=== PATIENT | female | born 1955 | race Two or more races ===

== ENCOUNTER 2023-12-11 15:02 | Emergency (ER) | payer MEDICARE ==
[~2023-12-11] VITALS: Ht 172.7 cm; Wt 61.9 kg
[2023-12-11] MEDS: KETOROLAC TROMETH 60MG/2ML VIAL IM ONE (16:10)
[2023-12-11 17:17] LABS: Urine Bacteria MOD /hpf (None Seen); Urine Blood Negative /uL (Negative); Urine Clarity Turbid (Clear); Urine Color Dark-Yellow (Yellow); Urine Mucus FEW (None Seen); Urine Protein, UAD 3+ (Negative); Urine Specific Gravity 1.027 (1.001-1.035); Urine Urobilinogen 8 mg/dL (Negative); Urine WBC 13 /hpf (0 - 5)
[2023-12-11] MEDS ORDERED: IBUP-1454 PO (17:54)
[2023-12-11] MEDS ORDERED: LEVO500T91 PO (17:54)
[2023-12-11] MEDS: levoFLOXacin 250 MG TAB PO ONE (18:05)
[2023-12-11 18:10] VITALS: BP 115/65; PULSE 92; RESP 17; TEMP 98.3; O2SAT 95
== END 2023-12-11 18:10 | disposition home or self-care (01) ==
LOC: ER 15:02
DX: N12 Tubulo-interstitial nephritis, not specified as acute or chronic (principal)
CPT/HCPCS: 81001; 96372; 99283; J1885

== ENCOUNTER 2024-05-23 12:43 | Inpatient (IN) | payer MEDICARE, OTHER ==
[~2024-05-23] VITALS: Ht 172.7 cm; Wt 54.4 kg
[~2024-05-23 12:43] MED LIST: IBUP-1454 PO; LEVO500T91 PO
--- NOTE | 2024-05-23 13:22 | ED.PDOC ---
History of Present Illness HPI Comments 68 y.o female presents to the ED for multiple complaints that been ongoing for months. Patient reports SOB, diffused abdominal pain, multiple syncopes, dizzy spells, bilateral flank pain, and 4 month hx of weight loss. Patient reports she was recently seen at [facility] 2 days ago. Patient reported one episode of rectal bleeding when wiping but since has not had more episodes. Patient reports ignoring her symptoms for months as she needs to go to work to provide for her family. Patient admits to tobacco and alcohol use but denies substance use. Chief Complaint: Shortness of Breath Time Seen by MD: 13:08 Reviewed Notes: Nurses Notes, Medications, Allergies Allergies: Uncoded Allergies: SULFA (Allergy, Unknown, 12/11/23) Home Meds Active Scripts Ibuprofen (Ibuprofen) 600 Mg Tab, 1 TAB PO Q6HP PRN, #30 TAB Prov:TRENT MALLORY PAC 12/11/23 Levofloxacin Hemihydrate (LEVAQUIN 500 MG) 500 Mg Tab, 1 TAB PO DAILY, #7 TAB Prov:TRENT MALLORY PAC 12/11/23 Information Source: Patient Mode of Arrival: Ambulatory Severity: Moderate Timing: Months Duration: Since onset Past Medical History PAST MEDICAL HISTORY: UTI'S Surgical History: Tonsillectomy Surgical History (Other): back LABEL MAKER History: No 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 LABEL MAKER History Family History Family History: Reviewed,noncontributory to illness, No family hx of Cancer, No family hx of DM, No family hx of Heart beverly, No family hx of HTN, No family hx ofKidney beverly, No family hx of Liver beverly, No family hx of Lung beverly, No family hx of Stroke Social History Smoker: Non-Smoker Alcohol: Denies ETOH Use Drugs: Denies Drug Use Lives In: Home Constitutional: denies: chills, diaphoresis, fatigue, fever, malaise, sweats, weakness, others EENTM: denies: blurred vision, double vision, ear bleeding, ear discharge, ear drainage, ear pain, ear ringing, eye pain, eye redness, hearing loss, mouth pain, mouth swelling, nasal discharge, nose bleeding, nose congestion, nose pain, photophobia, tearing, throat pain, throat swelling, voice changes, others Respiratory: reports: SOB at rest, shortness of breath, SOB with excertion; denies: cough, hemoptysis, orthopnea, stridor, wheezing, others Cardiovascular: reports: dizzy spells, syncope; denies: chest pain, diaphoresis, Dyspnea on exertion, edema, irregular heart beat, left arm pain, lightheadedness, palpitations, PND, others Gastrointestinal: reports: abdominal pain; denies: abdomen distended, blood streaked bowels, constipated, diarrhea, dysphagia, difficulty swallowing, hematemesis, melena, nausea, poor appetite, poor fluid intake, rectal bleeding, rectal pain, vomiting, others Genitourinary: reports: flank pain; denies: abnormal vagina bleeding, burning, dyspareunia, dysuria, frequency, hematuria, incontinence, pain, , vagina discharge, urgency, others Neurological: reports: dizziness, fainting; denies: headache, left sided numbness, left sided weakness, numbness, paresthesia, pre-existing deficit, right sided numbness, right sided weakness, seizure, speech problems, tingling, tremors, weakness, others Musculoskeletal: denies: back pain, gout, joint pain, joint swelling, muscle pain, muscle stiffness, neck pain, others Integumetry: denies: bruises, change in color, change in hair/nails, dryness, laceration, lesions, lumps, rash, wounds, others Allergic/Immunocompromised: denies: Difficulty Healing, Frequent Infections, Hives, Itching, others Hematologic/Lymphatic: denies: anemia, blood clots, easy bleeding, easy bruising, swollen glands, others Endocrine: reports: unexplained weight loss; denies: excessive hunger, excessive sweating, excessive thirst, excessive urination, flushing, intolerance to cold, intolerance to heat, unexplained weight gain, others Psychiatric: denies: anxiety, bipolar disorder, depression, hopeless, panic disorder, schizophrenia, sleepless, suicidal, others All Other Systems: Reviewed and Negative Physical Exam General Appearance: Cachectic, Moderate Distress HEENT: Normal ENT Inspection, Pharynx Normal, TMs Normal Neck: Full Range of Motion, Non-Tender, Normal, Normal Inspection Respiratory: Chest Non-Tender, Lungs Clear, No Accessory Muscle Use, No Respiratory Distress, Normal Breath Sounds Cardiovascular: No Edema, No JVD, No Murmur, No Gallop, Normal Peripheral Pulses, Regular Rate/Rhythm Breast Exam: Deferred Gastrointestinal: No Organomegaly, Non Tender, No Pulsatile Mass, Normal Bowel Sounds, Soft Genitalia: Deferred Pelvic: Deferred Rectal: Deferred Extremities: No calf tenderness, Normal capillary refill, No pedal edema Musculoskeletal : Apperance: Normal Neurologic: Alert, 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 Was a procedure done?: No EKG EKG : Pulse Rate (adult): 113 [place]: RAD Cardiac Rhythm: ST Differential Dx Considerations may include: Denies weakness, malignancy, PE, failure to thrive, electrolyte imbalance X-Ray, Labs, Meds, VS Vital Signs Date Time Temp Pulse Resp B/P (MAP) Pulse Ox O2 Delivery O2 Flow Rate FiO2 05/23/24 17:03 98.0 80 18 121/71 (88) 98 98.0 05/23/24 13:50 98.9 116 16 113/79 (90) 90 98.9 05/23/24 13:50 116 16 90 Room Air* 0 21 05/23/24 13:27 113 05/23/24 13:27 113 05/23/24 13:23 17 93 Room Air* 0 21 05/23/24 13:20 98.4 116 17 131/88 (102) 93 Lab Test 05/23/24 13:41 05/23/24 13:32 Range/Units White Blood Count 7.9 4.4-10.8 10^3/uL Red Blood Count 4.12 4.0-5.20 10^6/uL Hemoglobin 15.4 12.2-16.2 g/dL Hematocrit 44.6 36.0-46.0 % Mean Corpuscular Volume 108.2 H 80.0-100.0 fL Mean Corpuscular Hemoglobin 37.4 H 28.0-32.0 pg Mean Corpuscular Hemoglobin Concent 34.5 32.0-36.0 g/dL Red Cell Distribution Width 14.4 H 11.8-14.3 % Platelet Count 344 140-450 10^3/uL Mean Platelet Volume 7.0 6.9-10.8 fL Neutrophils (%) (Auto) 55.2 37.0-80.0 % Lymphocytes (%) (Auto) 33.6 10.0-50.0 % Monocytes (%) (Auto) 9.8 0.0-12.0 % Eosinophils (%) (Auto) 0.8 0.0-7.0 % Basophils (%) (Auto) 0.6 0.0-2.0 % Neutrophils # (Auto) 4.4 1.6-8.6 10 ^3/uL Lymphocytes # (Auto) 2.6 0.4-5.4 10 ^3/uL Monocytes # (Auto) 0.8 0-1.3 10 ^3/uL Eosinophils # (Auto) 0.1 0-0.8 10 ^3/uL Basophils # (Auto) 0 0-0.2 10 ^3/uL Nucleated Red Blood Cells 0.0 % Prothrombin Time 11.4 9.3-11.8 sec Prothrombin Time INR 1.08 0.9-1.15 Activated Partial Thromboplast Time 29.4 24.5-34.5 SEC Sodium Level 138 136-145 mmol/L Potassium Level 3.4 L 3.5-5.1 mmol/L Chloride Level 98 98-107 mmol/L Carbon Dioxide Level 30 20-31 mmol/L Anion Gap 10 5-15 Blood Urea Nitrogen 13 9-23 mg/dL Creatinine 0.84 0.550-1.02 mg/dL Glomerular Filtration Rate Calc 77 >90 mL/min BUN/Creatinine Ratio 15.5 10.0-20.0 Serum Glucose 109 H 74-106 mg/dL Calcium Level 10.9 H 8.7-10.4 mg/dL Urine Color Dark-orange Yellow Urine Clarity Cloudy H Clear Urine pH 6.0 5.0-9.0 Urine Specific [place] 1.027 1.001-1.035 Urine Protein 2+ H Negative Urine Ketones Trace Negative Urine Blood Negative Negative /uL Urine Nitrite 1+ H Negative Urine Bilirubin 1+ H Negative Urine Urobilinogen 8 H Negative mg/dL Urine Leukocyte Esterase Negative Negative /uL Urine RBC None seen 0 - 4 /hpf Urine Microscopic WBC 25 H 0-5 /HPF Urine Squamous Epithelial Cells Few <5 /hpf Urine Bacteria Few H None Seen /hpf Urine Hyaline Casts Few 0 - 2 /lpf Urine Mucus Many None Seen Urine Glucose Normal Normal mg/dL Current Medications Medications (Trade) Dose Ordered Sig/Krishna Route Start Time Stop Time Status Last Admin Sodium Chloride 500 ml @ 500 mls/hr Q1H ONCE IVB 05/23/24 13:30 05/23/24 14:29 DC 05/23/24 14:07 CT scan of the abdomen, pelvis and chest was done with IV contrast and shows: IMPRESSION: 1. L2 moderately severe compression fracture.Orthopedic Hardware intact without evidence of loosening. No aortic dissection. Appendix not visualized. Moderately severe osteoarthritic changes of the left hip joint. Moderately severe arteriosclerotic changes seen of the abdominal aorta The patient was having some failure to thrive An IV Hep-Lock was established and the patient was given normal saline The urine test is negative for infection at this time The CBC is within normal limits The chemistry panel is within normal limits The patient was being admitted at this time Images Reviewed?: Images reviewed and evaluated by me Time of 1ST Reevaluation: 13:22 Reevaluation 1ST: Unchanged Patient Education/Counseling: Diagnosis, Treatment, Prognosis Family Education/Counseling: No Family Present Departure 1 Departure Time of Disposition: 17:20 Impression: Primary Impression: Generalized weakness Additional Impression: Failure to thrive Qualified Codes: R62.7 - Adult failure to thrive Disposition: 09 ADMITTED INPATIENT Admit to: [facility] Condition: Fair Critical Care Note Critical Care Time?: No Stability Stability form required: Yes Unstable for transfer: Telemetry monitoring (Telemetry monitoring required), ED Physician Assesment (Clinical assesment) Heart Score Heart Score: Heart Score Response (Comments) Value History N/A 0 EKG N/A 0 Age N/A 0 Risk Factors N/A 0 Troponin N/A 0 Total 0 I personally scribed for MARINO LAMBERT MD ([email or web address]) on 05/23/24 at 13:22. Electronically submitted by Lima Miranda ([employer]). I personally scribed for MARINO LAMBERT MD ([email or web address]) on 05/23/24 at 13:27. Electronically submitted by Lima Miranda ([facility]). MARINO LAMBERT MD May 23, 2024 13:22
[2024-05-23 13:50] VITALS: PULSE 116; RESP 16; O2SAT 90
[2024-05-23 14:07] LABS: Eosinophils # (auto) 0.1 10 ^3/uL (0-0.8); Hemoglobin 15.4 g/dL (12.2-16.2); Mean Corpuscular Hemoglobin 37.4 pg (28.0-32.0); Monocytes # (auto) 0.8 10 ^3/uL (0-1.3); Red Blood Cells 4.12 10^6/uL (4.0-5.20)
[2024-05-23 14:07] LABS: Urine Bacteria FEW /hpf (None Seen); Urine Blood Negative /uL (Negative); Urine Clarity Cloudy (Clear); Urine Color Dark-Orange (Yellow); Urine Hyaline Cast FEW /lpf (0 - 2); Urine Mucus MANY (None Seen); Urine Protein, UAD 2+ (Negative); Urine Specific Gravity 1.027 (1.001-1.035); Urine Squamous Epithelial Cell FEW /hpf (<5); Urine Urobilinogen 8 mg/dL (Negative); Urine WBC 25 /HPF (0-5)
[2024-05-23] MEDS: SODIUM CHLORIDE 0.9% 500 ML IVB ONE (14:07)
[2024-05-23 14:09] LABS: Basophils # (auto) 0 10 ^3/uL (0-0.2); Basophils % (auto) 0.6 % (0.0-2.0); Eosinophils % (auto) 0.8 % (0.0-7.0); Hematocrit 44.6 % (36.0-46.0); Lymphocytes # (auto) 2.6 10 ^3/uL (0.4-5.4); Lymphocytes % (auto) 33.6 % (10.0-50.0); Mean Corpuscular Hgb Conc. 34.5 g/dL (32.0-36.0); Mean Corpuscular Volume 108.2 fL (80.0-100.0); Monocytes % (auto) 9.8 % (0.0-12.0); Neutrophils # (auto) 4.4 10 ^3/uL (1.6-8.6); Neutrophils % (auto) 55.2 % (37.0-80.0); Platelet Count (auto) 344 10^3/uL (140-450); Red Cell Distribution Width 14.4 % (11.8-14.3); White Blood Cell 7.9 10^3/uL (4.4-10.8)
--- NOTE | 2024-05-23 14:12 | ECG ---
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
[2024-05-23 14:19] LABS: Chloride 98 mmol/L (98-107); Sodium 138 mmol/L (136-145)
[2024-05-23 14:20] LABS: Anion Gap 10 (5-15); Carbon Dioxide 30 mmol/L (20-31); Potassium 3.4 mmol/L (3.5-5.1)
[2024-05-23 14:21] LABS: INR 1.08 (0.9-1.15); Partial Thromboplastin Time 29.4 SEC (24.5-34.5); Prothrombin Time 11.4 sec (9.3-11.8)
[2024-05-23 14:25] LABS: BUN/Creatinine Ratio 15.5 (10.0-20.0); Blood Urea Nitrogen 13 mg/dL (9-23)
[2024-05-23 14:29] LABS: Calcium 10.9 mg/dL (8.7-10.4); Glucose 109 mg/dL (74-106)
[2024-05-23] MEDS: IOHEXOL 300 MG/ML 100ML BOTTLE IJ ONE ×2 (15:57→16:15)
--- NOTE | 2024-05-23 16:50 | DVH ---
Exam: CT CT CHEST/AB/PL W CON- IV ONLY History: pain COMPARISON: None Technique: Multidetector spiral CT of the abdomen and pelvis was performed from lung bases to pubic s ymphysis. Intravenous contrast was administered during this examination. Portal venous imaging was obtained. Axial, coronal and sagittal multiplanar reformats were performed by the technologist on a separate workstation. Radiation Dose : 1. Abdomen/Pelvis: CTDIvol 5.7mGy, DLP 399.43 mGy*cm. CONTRAST: Type of contrast: Omnipaque 300 and Contrast injected: 100 ml Contrast ingested: 0 ml Findings: Chest: Lung godwin demonstrate no infiltrates. No pulmonary emboli. No aortic aneurysm. No pleural effusion s. Abdomen and pelvis: Lung Bases: No acute or significant lung base finding. Normal heart size. No pleural or pericardial effusion. Liver: The liver is normal in size. No focal lesions. Normal hepatic vascular enhancement. Gallbladder and Biliary Tree: Unremarkable Spleen: Unremarkable Pancreas: The pancreas is normal in appearance without focal lesions or abnormal enhancement. Adrenal Glands: Unremarkable Kidneys: No hydronephrosis. Bladder: Unremarkable Bowel: The stomach is grossly normal in appearance. Small bowel and colon are normal in caliber and d istribution. The appendix is not visualized; however, no secondary findings of acute appendicitis id entified. Ascites: Absent Lymphadenopathy: No mesenteric, retroperitoneal or periportal lymphadenopathy. Abdominal Wall and Mesentery: Unremarkable. Vasculature: The visualized abdominal aorta is normal in size and caliber. Abdominal and pelvic vess els demonstrate normal enhancement. Pelvic Organs: Unremarkable Musculoskeletal: Moderately severe compression fracture of L2 with approximately 80% loss of height. No prevertebral soft tissue swelling seen of the L2 level. Orthopedic hardware demonstrates no evidence of loosening. IMPRESSION: 1. L2 moderately severe compression fracture.Orthopedic Hardware intact without evidence of loosening. No aortic dissection. Appendix not visualized. Moderately severe osteoarthritic changes of the left hip joint. Moderately severe arteriosclerotic changes seen of the abdominal aorta Radiation optimization: All CT scans at this facility use at least one of these dose optimization ale hniques: automated exposure control mA and/or kV adjustment per patient size (includes targeted exam s where dose is matched to clinical indication) or iterative reconstruction.
--- NOTE | 2024-05-23 18:50 | DVHHP2 ---
History of Present Illness Reason for Visit: Generalized weakness History of Present Illness The patient is a 68-year-old female with past medical history of UTIs and low back pain who presented to [facility] ED with complaint of shortness of breaths. Patient reports symptoms progressively get worse with diffuse abd ominal pain, intractable nausea and vomiting, dizziness, bilateral flank pain, dysuria, loss of appetite, weight loss, generalized weakness, getting worse that prompted this visit. Patient was seen and evaluated in the ED, laboratory data shows WBC 7.9, platelets 344, sodium 138, potassium 3.4, BUN 13, creatinine 0.84, GFR 77, glucose 109, calcium 10.9. Abdomen/pelvis CT revealing L2 moderately severe compression fracture, orthopedic hardware intact without evidence of loosening, no aortic dissection, moderately severe osteoarthritic changes of the left hip joint, moderately severe atherosclerotic changes seen in the abdominal aorta, appendix not visualized. Urinalysis positive for urinary tract infection. Patient was started on IV antibiotic regimen Rocephin, please see medication orders section in the computer. On my assessment, patient denied chest pain, no headache, no dizziness at this moment, no diaphoresis, no shortness of breaths no nausea, no vomiting, no fever, no chills. Patient was admitted for further evaluation and medical management. Past Medical History UTI'S, Low back pain Past Surgical History Tonsillectomy, Back surgery Family History Reviewed, noncontributory to the management of this case. Past Social History The patient lives at home, denies smoking, alcohol or illicit drugs abuse. Review of Systems Constitutional: Yes: Weakness; No: Fever, Chills, Sweats, Malaise, Other Eyes: No: Pain, Vision change, Conjunctivae inflammation, Eyelid inflammation, Other, Redness ENT: No: Ear pain, Ear discharge, Nose pain, Nose discharge, Nose congestion, Mouth pain, Mouth swelling, Throat pain, Throat swelling, Other Respiratory: Shortness of breath, SOB with excertion, Other (SOB at rest) Cardiovascular: Other (Dizzy spell, syncope); No: Chest Pain, Palpitations, Orthopnea, Paroxysmal Noc. Dyspnea, Edema, Lt Headedness Gastrointestinal: Nausea, Vomiting, Abdominal Pain; No: Diarrhea, Constipation, Melena, Hematochezia, Other Genitourinary: Dysuria; No Frequency, No Incontinence, No Hematuria, No Retention; Other (Flank pain) Musculoskeletal: No: other, neck pain, shoulder pain, arm pain, back pain, hand pain, leg pain, foot pain Skin: No: Rash, Lesions, Jaundice, Bruising, Other Neurological: Other (Dizziness, fainting.); No: Weakness, Numbness, Incoordination, Change in speech, Confusion, Seizures Allergies: Uncoded Allergies: SULFA (Allergy, Unknown, 12/11/23) Exam Vital Signs Vital Signs Date Time Temp Pulse Resp B/P (MAP) Pulse Ox O2 Delivery O2 Flow Rate FiO2 05/23/24 17:03 98.0 80 18 121/71 (88) 98 98.0 05/23/24 13:50 Room Air* 0 21 General Appearance: Alert, Oriented X3, Cooperative, No acute distress HEENT: Atraumatic, PERRLA, EOMI, Mucous membr. moist/pink Respiratory: Clear to auscultation, Normal air movement Cardiovascular: Regular rate, Normal S1, Normal S2, No murmurs Abdominal: Normal bowel sounds, Soft, No tenderness, No hepatospenomegaly, No masses Extremities: No clubbing, No cyanosis, No edema, Normal pulses, No tenderness /swelling Skin: No rashes, No breakdown, No significant lesion Neuro: Normal speech, Normal tone, Sensation intact, Cranial nerves 3-12 NL, Reflexes 2+, Other (Generalized weakness) Psych/Mental Status: Mental status NL, Mood NL Labs/Xrays Labs Test 05/23/24 13:41 05/23/24 13:32 Range/Units White Blood Count 7.9 4.4-10.8 10^3/uL Red Blood Count 4.12 4.0-5.20 10^6/uL Hemoglobin 15.4 12.2-16.2 g/dL Hematocrit 44.6 36.0-46.0 % Mean Corpuscular Volume 108.2 H 80.0-100.0 fL Mean Corpuscular Hemoglobin 37.4 H 28.0-32.0 pg Mean Corpuscular Hemoglobin Concent 34.5 32.0-36.0 g/dL Red Cell Distribution Width 14.4 H 11.8-14.3 % Platelet Count 344 140-450 10^3/uL Mean Platelet Volume 7.0 6.9-10.8 fL Neutrophils (%) (Auto) 55.2 37.0-80.0 % Lymphocytes (%) (Auto) 33.6 10.0-50.0 % Monocytes (%) (Auto) 9.8 0.0-12.0 % Eosinophils (%) (Auto) 0.8 0.0-7.0 % Basophils (%) (Auto) 0.6 0.0-2.0 % Neutrophils # (Auto) 4.4 1.6-8.6 10 ^3/uL Lymphocytes # (Auto) 2.6 0.4-5.4 10 ^3/uL Monocytes # (Auto) 0.8 0-1.3 10 ^3/uL Eosinophils # (Auto) 0.1 0-0.8 10 ^3/uL Basophils # (Auto) 0 0-0.2 10 ^3/uL Nucleated Red Blood Cells 0.0 % Prothrombin Time 11.4 9.3-11.8 sec Prothrombin Time INR 1.08 0.9-1.15 Activated Partial Thromboplast Time 29.4 24.5-34.5 SEC Sodium Level 138 136-145 mmol/L Potassium Level 3.4 L 3.5-5.1 mmol/L Chloride Level 98 98-107 mmol/L Carbon Dioxide Level 30 20-31 mmol/L Anion Gap 10 5-15 Blood Urea Nitrogen 13 9-23 mg/dL Creatinine 0.84 0.550-1.02 mg/dL Glomerular Filtration Rate Calc 77 >90 mL/min BUN/Creatinine Ratio 15.5 10.0-20.0 Serum Glucose 109 H 74-106 mg/dL Calcium Level 10.9 H 8.7-10.4 mg/dL Urine Color Dark-orange Yellow Urine Clarity Cloudy H Clear Urine pH 6.0 5.0-9.0 Urine Specific [place] 1.027 1.001-1.035 Urine Protein 2+ H Negative Urine Ketones Trace Negative Urine Blood Negative Negative /uL Urine Nitrite 1+ H Negative Urine Bilirubin 1+ H Negative Urine Urobilinogen 8 H Negative mg/dL Urine Leukocyte Esterase Negative Negative /uL Urine RBC None seen 0 - 4 /hpf Urine Microscopic WBC 25 H 0-5 /HPF Urine Squamous Epithelial Cells Few <5 /hpf Urine Bacteria Few H None Seen /hpf Urine Hyaline Casts Few 0 - 2 /lpf Urine Mucus Many None Seen Urine Glucose Normal Normal mg/dL PATIENT: DEBRA MORRIS ACCT: [id number] UNIT: [id number] : 1955 LOC: ER ROOM / BED: / AGE / SEX: 68 / F ADM STATUS: REG ER SERVICE [id number] ORDERING PHYSICIAN: MARINO LAMBERT MD PROCEDURE(s): CAPIV - CT CHEST/AB/PL W CON- IV ONLY REASON: pain ORDER NUMBER(s): [id number], ACCESSION NUMBER(s): [id number] Exam: CT CT CHEST/AB/PL W CON- IV ONLY History: pain COMPARISON: None Technique: Multidetector spiral CT of the abdomen and pelvis was performed from lung bases to pubic symphysis. Intravenous contrast was administered during this examination. Portal venous imaging was obtained. Axial, coronal and sagittal multiplanar reformats were performed by the technologist on a separate workstation. Radiation Dose: 1. Abdomen/Pelvis: CTDIvol 5.7mGy, DLP 399.43 mGy*cm. CONTRAST: Type of contrast: Omnipaque 300 and Contrast injected: 100 ml Contrast ingested: 0 ml Findings: Chest: Lung godwin demonstrate no infiltrates. No pulmonary emboli. No aortic aneurysm. No pleural effusions. Abdomen and pelvis: Lung Bases: No acute or significant lung base finding. Normal heart size. No pleural or pericardial effusion. Liver: The liver is normal in size. No focal lesions. Normal hepatic vascular enhancement. Gallbladder and Biliary Tree: Unremarkable Spleen: Unremarkable Pancreas: The pancreas is normal in appearance without focal lesions or abnormal enhancement. Adrenal Glands: Unremarkable Kidneys: No hydronephrosis. Bladder: Unremarkable Bowel: The stomach is grossly normal in appearance. Small bowel and colon are normal in caliber and distribution. The appendix is not visualized; however, no secondary findings of acute appendicitis identified. Ascites: Absent Lymphadenopathy: No mesenteric, retroperitoneal or periportal lymphadenopathy. Abdominal Wall and Mesentery: Unremarkable. Vasculature: The visualized abdominal aorta is normal in size and caliber. Abdominal and pelvic vessels demonstrate normal enhancement. Pelvic Organs: Unremarkable Musculoskeletal: Moderately severe compression fracture of L2 with approximately 80% loss of height. No prevertebral soft tissue swelling seen of the L2 level. Orthopedic hardware demonstrates no evidence of loosening. IMPRESSION: 1. L2 moderately severe compression fracture.Orthopedic Hardware intact without evidence of loosening. No aortic dissection. Appendix not visualized. Moderately severe osteoarthritic changes of the left hip joint. Moderately severe arteriosclerotic changes seen of the abdominal aorta Assessment/Plan Assessment/Plan Generalized weakness Urinary tract infection Failure to thrive Adult failure to thrive Plan 1. Admit to telemetry unit 2. Breathing treatment 3. Pain control management 4. IV antibiotic management 5. Management of fluids and electrolytes 6. Consultation for hospitalist 7. Diagnostic test abdomen/pelvis CT 8. DVT prophylaxis-on SCDs 9. Repeat labs CBC, CMP in a.m. 10. Home medication reviewed and reconciled 11. Continue with current medical management 12. Treatment plan discussed with patient and RN. Patient verbalized understanding. Plan discussed with: Patient, Other (RN) My Orders Orders - RAFAL CLINE DNP Procedure Category Date Status Time Urine Bacterial DEBBIE 05/23/24 Logged Culture 18:47 Ceftriaxone Ivpb PHA 05/24/24 Transmitted Rocephin 09:00 Ceftriaxone Ivpb PHA 05/23/24 Transmitted Rocephin 19:00 Allergies SADIE 05/23/24 In Process 18:47 Code Status CODE 05/23/24 Transmitted 18:47 0.9% Ns 1000 Ml PHA 05/23/24 Transmitted 19:00 Oxygen Per Hour RT 05/23/24 Transmitted 18:47 Hydrocodone-Acet PHA 05/23/24 Transmitted 5/325mg Tab ([place] 19:00 Ondansetron Hcl PHA 05/23/24 Transmitted (Zofran) 19:00 Docusate Sodium PHA 05/23/24 Transmitted Capsule (Colace 19:00 Multiple Vitamin PHA 05/24/24 Transmitted Tablet (Mvi Tab) 10:00 Complete Blood Count LAB 05/24/24 Verified 04:00 Comprehensive LAB 05/24/24 Verified Metabolic Panel 04:00 Condition: Serious SADIE 05/23/24 In Process 18:47 Acetaminophen Tablet PHA 05/23/24 Transmitted (Tylenol Tablet) 19:00 Bedrest With Bathroom SADIE 05/23/24 In Process Privileg 18:47 Sequential SADIE 05/23/24 In Process Compression Device Problem List: (1) Generalized weakness (2) Urinary tract infection (3) Failure to thrive (4) Adult failure to thrive Date of Service: May 23, 2024 Billing Provider: RAFAL CLINE DNP Common Visit Codes: 69304-[id number] INP/OBS CARE (HIGH) RAFAL CLINE DNP May 23, 2024 18:50
[2024-05-23] MEDS ORDERED: MORPHINE SULFATE INJ 2 MG/ml SYRG IV PRN (19:00)
[2024-05-23] MEDS ORDERED: ONDANSETRON HCL 4 MG/2 ML VIAL IV PRN (19:00)
[2024-05-23] MEDS ORDERED: HYDROcodone-ACET 5/325MG TAB PO PRN (19:00)
[2024-05-23] MEDS ORDERED: ACETAMINOPHEN 325 MG TAB PO PRN (19:00)
[2024-05-23] MEDS ORDERED: DOCUSATE SOD 100 MG CAP PO PRN (19:00)
[2024-05-23] MEDS ORDERED: NITROGLYCERIN 0.4 MG SL TAB SL PRN (19:00)
[2024-05-23 22:45] VITALS: BP 108/63; PULSE 80; RESP 16; TEMP 97.6; O2SAT 94
[2024-05-23] MEDS: SODIUM CHLORIDE 0.9% 1,000 ML IV SCH (23:13)
[2024-05-23] MEDS: POTASSIUM CHL 20 Meq TABLET PO ONE (23:20)
[2024-05-23] MEDS: cefTRIAXone 1GM/50ML D5W 50 ML IV ONE (23:28)
[2024-05-24] VITALS (8 sets, daily range): BP systolic 93–120; BP diastolic 51–64; PULSE 71–81; RESP 16–18; TEMP 97.8–99.1; O2SAT 91–98
[2024-05-24 05:39] LABS: Basophils # (auto) 0 10 ^3/uL (0-0.2); Eosinophils # (auto) 0.1 10 ^3/uL (0-0.8); Lymphocytes # (auto) 1.9 10 ^3/uL (0.4-5.4); Mean Corpuscular Hgb Conc. 33.8 g/dL (32.0-36.0); Monocytes # (auto) 0.6 10 ^3/uL (0-1.3); Neutrophils # (auto) 3.6 10 ^3/uL (1.6-8.6); White Blood Cell 6.3 10^3/uL (4.4-10.8)
[2024-05-24 05:41] LABS: Basophils % (auto) 0.6 % (0.0-2.0); Eosinophils % (auto) 0.8 % (0.0-7.0); Hematocrit 40.2 % (36.0-46.0); Hemoglobin 13.6 g/dL (12.2-16.2); Lymphocytes % (auto) 30.8 % (10.0-50.0); Mean Corpuscular Hemoglobin 36.9 pg (28.0-32.0); Mean Corpuscular Volume 109.3 fL (80.0-100.0); Monocytes % (auto) 10.2 % (0.0-12.0); Neutrophils % (auto) 57.6 % (37.0-80.0); Platelet Count (auto) 287 10^3/uL (140-450); Red Blood Cells 3.68 10^6/uL (4.0-5.20); Red Cell Distribution Width 14.8 % (11.8-14.3)
[2024-05-24 06:00] LABS: Alanine Aminotransferase 12 U/L (7-40); Albumin 3.8 g/dL (3.2-4.8); Alkaline Phosphatase 51 U/L (46-116); Anion Gap 7 (5-15); Aspartate Aminotransferase 21 U/L (13-40); BUN/Creatinine Ratio 19.7 (10.0-20.0); Bilirubin, Total 0.6 mg/dL (0.2-1.0); Blood Urea Nitrogen 12 mg/dL (9-23); Calcium 10.2 mg/dL (8.7-10.4); Carbon Dioxide 31 mmol/L (20-31); Chloride 99 mmol/L (98-107); Glucose 87 mg/dL (74-106); Sodium 137 mmol/L (136-145); Total Protein 6.3 g/dL (5.7-8.2)
[2024-05-24 06:04] LABS: Potassium 3.3 mmol/L (3.5-5.1)
[2024-05-24] MEDS: cefTRIAXone 1GM/50ML D5W 50 ML IV SCH (08:21)
[2024-05-24] MEDS: MULTIPLE VITAMIN TAB PO SCH (08:47)
--- NOTE | 2024-05-24 09:23 | DVHPNRES ---
Progress Note Date Seen: May 24, 2024 Resident Creating Document: ROSE SILVA RESIDENT Medical Necessity Reason Pt with a Central, PICC or Fol: No Subjective Review of Systems This is a 68-year-old female with past medical history of recurrent UTI, chronic back pain, s/p back surgery presented to the ED with a complaint of shortness of breath. According to the patient she was experiencing lower abdominal and bilateral flank pain, urgency dysuria, nausea was getting worse that prompted this visit. Patient was seen and examined on the bedside. She is alert, oriented x3. Complaint lower abdominal pain and high color urine. No other active complaint. Constitutional: No: Fever, Chills, Sweats, Weakness, Malaise, Other Eyes: No: Pain, Vision change, Conjunctivae inflammation, Eyelid inflammation, Other, Redness ENT: No: Ear pain, Ear discharge, Nose pain, Nose discharge, Nose congestion, Mouth pain, Mouth swelling, Throat pain, Throat swelling, Other Respiratory: Shortness of breath, improving No: Cough, Dry,Wheezing, Hemoptysis, Pleuritic Pain, Sputum, Wheezing, Other Cardiovascular: No: Chest Pain, Palpitations, Orthopnea, Paroxysmal Noc. Dyspnea, Edema, Lt Headedness, Other Gastrointestinal: Nausea, Vomiting, Abdominal Pain, No Diarrhea, Constipation, Melena, Hematochezia, Other Genitourinary: Dysuria; No Frequency, No Incontinence, No Hematuria, No Retention; Other (Flank pain) Musculoskeletal: No: other, neck pain, shoulder pain, arm pain, back pain, hand pain, leg pain, foot pain Neurological:; No: Weakness, Numbness, Incoordination, Change in speech, Confusion, Seizures Objective vital signs Vital Sign Date Time Temp Pulse Resp B/P (MAP) Pulse Ox O2 Delivery O2 Flow Rate FiO2 05/24/24 08:00 99.1 71 16 93/57 (31) 96 99.1 05/23/24 22:45 Room Air* 0 21 Total Intake and Output 05/23/24 05/23/24 05/24/24 15:00 23:00 07:00 Intake Total 500 ml 350 ml Output Total 1 ml Balance 500 ml 349 ml medications Current Medications Medications Dose Ordered Sig/Krishna Route Start Time Stop Time Status Last Admin Dose Admin Ceftriaxone Sodium 50 ml @ 100 mls/hr DAILY@09 IV 05/24/24 09:00 05/24/24 08:21 100 MLS/HR Sodium Chloride 1,000 ml @ 60 mls/hr [id number] IV 05/23/24 19:00 05/23/24 23:13 60 MLS/HR Acetaminophen/ Hydrocodone Bitart 1 tab Q4HP PRN PO 05/23/24 19:00 Ondansetron HCl 4 mg Q4HP PRN IV 05/23/24 19:00 Docusate Sodium 100 mg BIDPRN PRN PO 05/23/24 19:00 Multivitamins 1 tab DAILY PO 05/24/24 10:00 05/24/24 08:47 1 TAB Acetaminophen 650 mg Q6HP PRN PO 05/23/24 19:00 Nitroglycerin 0.4 mg Q5MINP PRN SL 05/23/24 19:00 Morphine Sulfate 2 mg Q30M PRN IV 05/23/24 19:00 Examination Physical examination: General Appearance: Alert, Oriented X3, Cooperative, No acute distress HEENT: Atraumatic, PERRLA, EOMI, Mucous membrane moist/pink Respiratory: Clear to auscultation, Normal air movement Cardiovascular: Regular rate, Normal S1, Normal S2, No murmurs, no chest wall tenderness Abdominal: Normal bowel sounds, Soft, No tenderness, No hepatospenomegaly, No masses Extremities: Non healing wound in the lower part of sims of tibia, No clubbing, No cyanosis, No edema, Normal pulses. Skin: No rashes, No breakdown, No significant lesion Neuro: Normal gait, Normal speech, Strength at 5/5 X4 ext, Normal tone, Sensation intact, grossly intact cranial nerves. Psych/Mental Status: Mental status NL, Mood NL laboratory and microbiology Laboratory Tests 05/24/24 05:00 Test 05/24/24 05:00 Range/Units Serum Glucose 87 74-106 mg/dL Labs and/or images reviewed: Labs reviewed by me, Image(s) reviewed by me Problem List/Assessment/Plan Problem List/Assessment/Plan Assessment and plan: # Acute Complicated cystitis - U/A consistent with UTI - Pending urine bacterial culture - IV ceftriaxone 1 g daily # Chronic back pain, s/p back surgery - CT chest abdomen pelvis with IV contrast revealed L2 moderately severe compression fracture, hardware intact without event of evidence of loosening. Moderately severe osteoarthritic changes of the left hip joint - [place] 5/325 mg 1 tab q.4 p.r.n. # Hypokalemia - Replenished. # Generalized weakness /Failure to thrive # Severe malnutrition, BMI is 16.8 kg/m2 - counseled patient regarding healtthy nutritious diet. PUD prophylaxis: Pepcid 20 mg p.o. daily DVT prophylaxis: Lovenox 40 mg sc daily Code status : Full code. Plan discussed with Dr. Guy Plan discussed with: Patient, Other My Orders My Orders Orders - ROSE SILVA RESIDENT Procedure Category Date Status Time Covid19 Antigen [place] LAB 05/24/24 Logged Rapid Influenza A&B LAB 05/24/24 Logged 07:52 Mrsa Screen DEBBIE 05/24/24 Uncollected 07:52 Date of Service: May 24, 2024 Billing Provider: LAURENT MCGOWAN MD Common Visit Codes: [id number] INP/OBS CARE(HIGH) ROSE SILVA RESIDENT May 24, 2024 09:23 LAURENT MCGOWAN MD May 29, 2024 23:32
[2024-05-24 13:22] LABS: COVID19 ANTIGEN SOFIA FIA NEGATIVE (NEGATIVE)
[2024-05-24] MEDS: FAMOTIDINE 20 MG TAB PO ONE (17:19)
[2024-05-24 18:43] LABS: Rapid Influenza A Negative (Negative); Rapid Influenza B Negative (Negative)
[2024-05-25 04:50] VITALS: BP 98/58; PULSE 75; RESP 16; TEMP 98.1; O2SAT 91
[2024-05-25 06:15] LABS: Basophils # (auto) 0 10 ^3/uL (0-0.2); Eosinophils # (auto) 0.1 10 ^3/uL (0-0.8); Lymphocytes # (auto) 1.7 10 ^3/uL (0.4-5.4); Nucleated Red Blood Cells % 0.1 %
[2024-05-25 06:18] LABS: Basophils % (auto) 0.9 % (0.0-2.0); Eosinophils % (auto) 1.9 % (0.0-7.0); Hematocrit 39.7 % (36.0-46.0); Hemoglobin 13.4 g/dL (12.2-16.2); Lymphocytes % (auto) 33.7 % (10.0-50.0); Mean Corpuscular Hemoglobin 36.6 pg (28.0-32.0); Mean Corpuscular Hgb Conc. 33.7 g/dL (32.0-36.0); Mean Corpuscular Volume 108.7 fL (80.0-100.0); Monocytes # (auto) 0.5 10 ^3/uL (0-1.3); Monocytes % (auto) 9.2 % (0.0-12.0); Neutrophils # (auto) 2.7 10 ^3/uL (1.6-8.6); Neutrophils % (auto) 54.3 % (37.0-80.0); Platelet Count (auto) 281 10^3/uL (140-450); Red Blood Cells 3.66 10^6/uL (4.0-5.20); Red Cell Distribution Width 14.9 % (11.8-14.3)
[2024-05-25 06:34] LABS: Calcium 10.2 mg/dL (8.7-10.4); Chloride 103 mmol/L (98-107); Potassium 3.7 mmol/L (3.5-5.1); Sodium 140 mmol/L (136-145)
[2024-05-25 06:35] LABS: Anion Gap 6 (5-15)
[2024-05-25 06:36] LABS: Carbon Dioxide 31 mmol/L (20-31)
[2024-05-25 06:40] LABS: BUN/Creatinine Ratio 11.5 (10.0-20.0); Glucose 81 mg/dL (74-106)
[2024-05-25 06:41] LABS: Blood Urea Nitrogen 7 mg/dL (9-23)
[2024-05-25 08:00] VITALS: PULSE 98; RESP 17; O2SAT 95
[2024-05-25 09:00] VITALS: BP 93/52; PULSE 98; RESP 17; TEMP 98.3; O2SAT 95
[2024-05-25] MEDS: FAMOTIDINE 20 MG TAB PO SCH (09:37)
[2024-05-25] MEDS: ENOXAPARIN SOD 40 MG/0.4 ML SYRINGE SC SCH (09:37)
[2024-05-25] MEDS: SODIUM CHLORIDE 0.9% 500 ML IV ONE (11:00)
[2024-05-25 12:30] VITALS: BP 100/54; PULSE 74; RESP 16
[2024-05-25 12:31] VITALS: BP 99/64; PULSE 79; RESP 17
[2024-05-25 12:32] VITALS: BP 100/61; PULSE 91; RESP 18
--- NOTE | 2024-05-25 13:39 | DVHDSRES ---
Discharge Summary Date of Admission Resident Creating Document: ROSE SILVA RESIDENT May 23, 2024 at 18:49 Date of Discharge: May 25, 2024 Admitting Diagnosis Sepsis present on admission Acute Complicated cystitis Wounds: No wound was Present Labs/Diagnostic Data: Laboratory Results Test 05/25/24 05:31 05/24/24 16:00 05/24/24 10:00 05/24/24 05:00 White Blood Count 5.0 10^3/uL (4.4-10.8) Red Blood Count 3.66 10^6/uL (4.0-5.20) Hemoglobin 13.4 g/dL (12.2-16.2) Hematocrit 39.7 % (36.0-46.0) Mean Corpuscular Volume 108.7 fL (80.0-100.0) Mean Corpuscular Hemoglobin 36.6 pg (28.0-32.0) Mean Corpuscular Hemoglobin Concent 33.7 g/dL (32.0-36.0) Red Cell Distribution Width 14.9 % (11.8-14.3) Platelet Count 281 10^3/uL (140-450) Mean Platelet Volume 7.0 fL (6.9-10.8) Neutrophils (%) (Auto) 54.3 % (37.0-80.0) Lymphocytes (%) (Auto) 33.7 % (10.0-50.0) Monocytes (%) (Auto) 9.2 % (0.0-12.0) Eosinophils (%) (Auto) 1.9 % (0.0-7.0) Basophils (%) (Auto) 0.9 % (0.0-2.0) Neutrophils # (Auto) 2.7 10 ^3/uL (1.6-8.6) Lymphocytes # (Auto) 1.7 10 ^3/uL (0.4-5.4) Monocytes # (Auto) 0.5 10 ^3/uL (0-1.3) Eosinophils # (Auto) 0.1 10 ^3/uL (0-0.8) Basophils # (Auto) 0 10 ^3/uL (0-0.2) Nucleated Red Blood Cells 0.1 % Sodium Level 140 mmol/L (136-145) Potassium Level 3.7 mmol/L (3.5-5.1) Chloride Level 103 mmol/L (98-107) Carbon Dioxide Level 31 mmol/L (20-31) Anion Gap 6 (5-15) Blood Urea Nitrogen 7 mg/dL (9-23) Creatinine 0.61 mg/dL (0.550-1.02) Glomerular Filtration Rate Calc 99 mL/min (>90) BUN/Creatinine Ratio 11.5 (10.0-20.0) Serum Glucose 81 mg/dL (74-106) Calcium Level 10.2 mg/dL (8.7-10.4) Influenza Type A Antigen Negative (Negative) Influenza Type B Antigen Negative (Negative) SARS-CoV-2 Antigen (Rapid) Negative (NEGATIVE) Total Bilirubin 0.6 mg/dL (0.2-1.0) Aspartate Amino Transferase (AST) 21 U/L (13-40) Alanine Aminotransferase (ALT) 12 U/L (7-40) Alkaline Phosphatase 51 U/L (46-116) B-Type Natriuretic Peptide 41.83 pg/mL (0-100) Total Protein 6.3 g/dL (5.7-8.2) Albumin 3.8 g/dL (3.2-4.8) Test 05/23/24 13:41 05/23/24 13:40 05/23/24 13:32 Prothrombin Time 11.4 sec (9.3-11.8) Prothrombin Time INR 1.08 (0.9-1.15) Activated Partial Thromboplast Time 29.4 SEC (24.5-34.5) Urine Color Dark-orange (Yellow) Urine Clarity Cloudy (Clear) Urine pH 6.0 (5.0-9.0) Urine Specific [place] 1.027 (1.001-1.035) Urine Protein 2+ (Negative) Urine Ketones Trace (Negative) Urine Blood Negative /uL (Negative) Urine Nitrite 1+ (Negative) Urine Bilirubin 1+ (Negative) Urine Urobilinogen 8 mg/dL (Negative) Urine Leukocyte Esterase Negative /uL (Negative) Urine RBC None seen /hpf (0 - 4) Urine Microscopic WBC 25 /HPF (0-5) Urine Squamous Epithelial Cells Few /hpf (<5) Urine Bacteria Few /hpf (None Seen) Urine Hyaline Casts Few /lpf (0 - 2) Urine Mucus Many (None Seen) Urine Glucose Normal mg/dL (Normal) Other Laboratory Tests 05/25/24 05:31 Brief Hx & Hospital Course: This is a 68-year-old female with past medical history of recurrent UTI, chronic back pain, s/p back surgery presented to the ED with a complaint of shortness of breath. According to the patient she was experiencing lower abdominal and bilateral flank pain, urgency dysuria, nausea was getting worse that prompted this visit. Hospital course: Sepsis present on admission and U/A was consistent with UTI. CT chest abdomen pelvis with IV contrast revealed L2 moderately severe compression fracture, hardware intact without event of evidence of loosening. Moderately severe osteoarthritic changes of the left hip joint. orthostatic hypotension was negative and multiple recording of the blood pressure was showing hypotension which was treated with IV normal saline 500 mL bolus and patient was also treated with IV ceftriaxone 1 g daily for acute complicated cystitis. Discharge plan was discussed with the patient and all questions were answered. patient is being discharged to home with ciprofloxacin 500 mg p.o. daily for 3 days and advised to follow up with PCP in 1 week. Physical examination: General Appearance: Alert, Oriented X3, Cooperative, No acute distress HEENT: Atraumatic, PERRLA, EOMI, Mucous membrane moist/pink Respiratory: Clear to auscultation, Normal air movement Cardiovascular: Regular rate, Normal S1, Normal S2, No murmurs, no chest wall tenderness Abdominal: Normal bowel sounds, Soft, No tenderness, No hepatospenomegaly, No masses Extremities: No clubbing, No cyanosis, No edema, Normal pulses, No tenderness/swelling Skin: No rashes, No breakdown, No significant lesion Neuro: Normal gait, Normal speech, Strength at 5/5 X4 ext, Normal tone, Sensation intact, Cranial nerves 3-12 NL, Reflexes 2+ Psych/Mental Status: Mental status NL, Mood NL Discharge diagnosis: # Sepsis present on admission # Acute Complicated cystitis # Chronic back pain, s/p back surgery # Hypokalemia # Generalized weakness /Failure to thrive # Severe malnutrition, BMI is 18.2 kg/m2 Consults/Reason for consult No Consultation was done Operations or Procedures Exam: CT CT CHEST/AB/PL W CON- IV ONLY Findings: Chest: Lung godwin demonstrate no infiltrates. No pulmonary emboli. No aortic aneurysm. No pleural effusions. Abdomen and pelvis: Lung Bases: No acute or significant lung base finding. Normal heart size. No pleural or pericardial effusion. Liver: The liver is normal in size. No focal lesions. Normal hepatic vascular enhancement. Gallbladder and Biliary Tree: Unremarkable Spleen: Unremarkable Pancreas: The pancreas is normal in appearance without focal lesions or abnormal enhancement. Adrenal Glands: Unremarkable Kidneys: No hydronephrosis. Bladder: Unremarkable Bowel: The stomach is grossly normal in appearance. Small bowel and colon are normal in caliber and distribution. The appendix is not visualized; however, no secondary findings of acute appendicitis identified. Ascites: Absent Lymphadenopathy: No mesenteric, retroperitoneal or periportal lymphadenopathy. Abdominal Wall and Mesentery: Unremarkable. Vasculature: The visualized abdominal aorta is normal in size and caliber. Abdominal and pelvic vessels demonstrate normal enhancement. Pelvic Organs: Unremarkable Musculoskeletal: Moderately severe compression fracture of L2 with approximately 80% loss of height. No prevertebral soft tissue swelling seen of the L2 level. Orthopedic hardware demonstrates no evidence of loosening. IMPRESSION: 1. L2 moderately severe compression fracture.Orthopedic Hardware intact without evidence of loosening. No aortic dissection. Appendix not visualized. Moderately severe osteoarthritic changes of the left hip joint. 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 Discharge Statement: "Patient was advised to return to the ER or call 911 if any headaches, dizziness, shortness of breath, chest pain, abdominal pain, bleeding, fevers, or worsening of medical condition. Patient was counseled about treatment plan, medications, possible side effects, patientverbalized understanding. All questions were answered to the best of my ability. This discharge took greater then 30 minutes in planning, reviewing documentation, counseling the patient, and discussing with other team members." ASSESSMENT ASSESSMENT Assessment # Acute Complicated cystitis # Chronic back pain, s/p back surgery # Hypokalemia # Generalized weakness /Failure to thrive # Severe malnutrition, BMI is 18.2 kg/m2 Date of Service: May 25, 2024 Billing Provider: LAURENT MCGOWAN MD Common Visit Codes: 69671-GQZ/OBS DISCH DAY >30min ROSE SILVA RESIDENT May 25, 2024 13:39 LAURENT MCGOWAN MD May 26, 2024 11:16
[2024-05-25] MEDS ORDERED: CIPR500T4 PO (15:26)
[2024-05-26 11:00] LABS: Hepatitis B Surface Antigen Negative (Negative); Hepatitis C Antibody Negative (Negative)
--- NOTE | 2024-05-26 11:07 | PEER ---
Peer to Peer Review Time DATE: 05/26/24 TIME: 11:06 Review and Recommendations: Approved for inpatient Sepsis by Dr. Caicedo at [facility]. Clinicals were reviewed and agreed patient was septic. NEHAL TY MD May 26, 2024 11:07
== END 2024-05-25 16:30 | disposition home or self-care (01) | DRG 871 ==
LOC: ER 12:43 → OVERFLOW 18:49 → TELE-WESTW 05-24 23:54 → WEST WING 05-25 05:19
PROVIDERS: ADMIT Student in an Organized Health Care Education/Training Program; ATTEND Student in an Organized Health Care Education/Training Program
DX: A41.9 Sepsis, unspecified organism (principal); E43 Unspecified severe protein-calorie malnutrition; N30.00 Acute cystitis without hematuria; Z68.1 Body mass index [BMI] 19.9 or less, adult; E87.6 Hypokalemia; G89.29 Other chronic pain; R62.7 Adult failure to thrive; M16.12 Unilateral primary osteoarthritis, left hip; Z88.2 Allergy status to sulfonamides; M54.50 Low back pain, unspecified; Z20.822 Contact with and (suspected) exposure to COVID-19
CPT/HCPCS: 36415; 71260; 74177; 80048; 80053; 81001; 83880; 85025; 85610; 85730; 86803; 87081; 87086; 87088; 87186; 87340; 87426; 87804; 93005; G0378

== ENCOUNTER 2024-07-11 11:40 | Inpatient (IN) | payer OTHER ==
[~2024-07-11] VITALS: Ht 172.7 cm; Wt 54.5 kg
[~2024-07-11 11:40] MED LIST changes: +CIPR500T4 PO; -IBUP-1454 PO; -LEVO500T91 PO
--- NOTE | 2024-07-11 12:07 | ED.PDOC ---
History of Present Illness HPI Comments 68-year-old female presents reporting that she believes that her uterus is falling out. Patient states she saw a doctor in the past, but not follow-up with them for treatment. Patient states that she had pelvic pain since x 4 days. 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 GRAPPLE CREW LEADER History Family History Family History: Reviewed,noncontributory to illness, No family hx of Cancer, No family hx of DM, No family hx of Heart beverly, No family hx of HTN, No family hx ofKidney beverly, No family hx of Liver beverly, No family hx of Lung beverly, No family hx of Stroke Social History Smoker: Non-Smoker Alcohol: Denies ETOH Use Drugs: Denies Drug Use Lives In: Home Constitutional: denies: chills, diaphoresis, fatigue, fever, malaise, sweats, weakness, others EENTM: denies: blurred vision, double vision, ear bleeding, ear discharge, ear drainage, ear pain, ear ringing, eye pain, eye redness, hearing loss, mouth pain, mouth swelling, nasal discharge, nose bleeding, nose congestion, nose pain, photophobia, tearing, throat pain, throat swelling, voice changes, others Respiratory: denies: cough, hemoptysis, orthopnea, SOB at rest, shortness of breath, SOB with excertion, stridor, wheezing, others Cardiovascular: denies: chest pain, dizzy spells, diaphoresis, Dyspnea on exertion, edema, irregular heart beat, left arm pain, lightheadedness, palpitations, PND, syncope, others Gastrointestinal: denies: abdomen distended, abdominal pain, blood streaked bowels, constipated, diarrhea, dysphagia, difficulty swallowing, hematemesis, melena, nausea, poor appetite, poor fluid intake, rectal bleeding, rectal pain, vomiting, others Genitourinary: reports: pain (PELVIC); denies: abnormal vagina bleeding, burning, dyspareunia, dysuria, flank pain, frequency, hematuria, incontinence, , vagina discharge, urgency, others Neurological: denies: dizziness, fainting, headache, left sided numbness, left sided weakness, numbness, paresthesia, pre-existing deficit, right sided numbness, right sided weakness, seizure, speech problems, tingling, tremors, weakness, others Musculoskeletal: denies: back pain, gout, joint pain, joint swelling, muscle pain, muscle stiffness, neck pain, others Integumetry: denies: bruises, change in color, change in hair/nails, dryness, laceration, lesions, lumps, rash, wounds, others Allergic/Immunocompromised: denies: Difficulty Healing, Frequent Infections, Hives, Itching, others Hematologic/Lymphatic: denies: anemia, blood clots, easy bleeding, easy bruising, swollen glands, others Endocrine: denies: excessive hunger, excessive sweating, excessive thirst, excessive urination, flushing, intolerance to cold, intolerance to heat, unexplained weight gain, unexplained weight loss, others Psychiatric: denies: anxiety, bipolar disorder, depression, hopeless, panic disorder, schizophrenia, sleepless, suicidal, others All Other Systems: Reviewed and Negative Physical Exam General Appearance: No Apparent Distress, Normal HEENT: Normal ENT Inspection, Pharynx Normal, TMs Normal Neck: Full Range of Motion, Non-Tender, Normal, Normal Inspection Respiratory: Chest Non-Tender, Lungs Clear, No Accessory Muscle Use, No Respiratory Distress, Normal Breath Sounds Cardiovascular: No Edema, No JVD, No Murmur, No Gallop, Normal Peripheral Pulses, Regular Rate/Rhythm Breast Exam: Deferred Gastrointestinal: No Organomegaly, Non Tender, No Pulsatile Mass, Normal Bowel Sounds, Soft Genitalia: Deferred Pelvic: Other (no active vaginal prolapse. introitus is normal. no bleeding. no tenderness) Rectal: Deferred Extremities: No calf tenderness, Normal capillary refill, Normal inspection, Normal range of motion, Non-tender, No pedal edema Musculoskeletal : Apperance: Normal Neurologic: Alert, oracle soa consultant II-XII nml as Tested, No Motor Deficits, Normal Affect, Normal Mood, No Sensory Deficits Cerebellar Function: Normal Reflexes: Normal Skin: Dry, Normal Color, Warm Lymphatic: No Adenopathy Was a procedure done? Was a procedure done?: No Differential Dx Considerations may include: vaginal prolapse, uterine prolapse, vaginal mass X-Ray, Labs, Meds, VS Vital Signs Date Time Temp Pulse Resp B/P (MAP) Pulse Ox O2 Delivery O2 Flow Rate FiO2 07/11/24 11:56 99.3 104 18 126/72 (90) 93 99.3 Time of 1ST Reevaluation: 12:30 Reevaluation 1ST: Unchanged Patient Education/Counseling: Diagnosis, Treatment, Prognosis, Need For Follow Up Family Education/Counseling: No Family Present Additional Information The following tests were ordered, and results were reviewed by me: I reviewed and agreed with the following test results read by other providers: I discussed treatment and results with medical personnel and: Patient Comprehensive systems review obtained and negative except for what is stated in the HPI. pt reports her uterus prolapse and self reduces when she lays down. she has no PCP and cannot get follow ups. 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 Electronically submitted by Kenn Morris ([email or web address]). RAY MAHAN MD Jul 11, 2024 12:07
--- NOTE | 2024-07-11 15:19 | DVHHP2 ---
Admitting Diagnosis: Pelvic pain History of Present Illness 68-year-old female presents reporting that she believes that her uterus is falling out. Patient states she saw a doctor in the past, but not follow-up with them for treatment. Patient states that she had pelvic pain since x 4 days. PAST MEDICAL HISTORY: UTI'S Surgical History: Tonsillectomy COOPERATIVE EDUCATION DIRECTOR History: No Pertinent COOPERATIVE EDUCATION DIRECTOR History Family History: Reviewed,noncontributory to illness, No family hx of Cancer, No family hx of DM, No family hx of Heart beverly, No family hx of HTN, No family hx ofKidney beverly, No family hx of Liver beverly, No family hx of Lung beverly, No family hx of Stroke Social History Smoker: Non-Smoker Alcohol: Denies ETOH Use Drugs: Denies Drug Use Lives In: Home Patient Family History: Patient reports no known family medical history. Allergies: Uncoded Allergies: SULFA (Allergy, Unknown, 12/11/23) Home Meds Active Scripts Ciprofloxacin Hcl (Ciprofloxacin Hcl) 500 Mg Tab, 1 TAB PO DAILY for 3 Days, #3 TAB Prov:ROSE SILVA RESIDENT 05/25/24 Vital Signs Vital Signs Date Time Temp Pulse Resp B/P (MAP) Pulse Ox O2 Delivery O2 Flow Rate FiO2 07/11/24 11:56 99.3 104 18 126/72 (90) 93 99.3 Physical Exam Generally 62 years old woman, well nourished well developed. No apparent distress HEENT-atraumatic, normocephalic Heart-regular rate and rhythm Lungs clear to auscultate bilaterally Abdomen soft nontender nondistended Musculoskeletal-no edema cyanosis Neuro-AO x3, no focal deficits Results Labs Test 07/11/24 15:24 Range/Units White Blood Count 7.5 4.4-10.8 10^3/uL Red Blood Count 3.69 L 4.0-5.20 10^6/uL Hemoglobin 13.4 12.2-16.2 g/dL Hematocrit 40.0 36.0-46.0 % Mean Corpuscular Volume 108.3 H 80.0-100.0 fL Mean Corpuscular Hemoglobin 36.4 H 28.0-32.0 pg Mean Corpuscular Hemoglobin Concent 33.6 32.0-36.0 g/dL Red Cell Distribution Width 14.2 11.8-14.3 % Platelet Count 276 140-450 10^3/uL Mean Platelet Volume 6.9 6.9-10.8 fL Neutrophils (%) (Auto) 64.3 37.0-80.0 % Lymphocytes (%) (Auto) 28.3 10.0-50.0 % Monocytes (%) (Auto) 5.0 0.0-12.0 % Eosinophils (%) (Auto) 1.5 0.0-7.0 % Basophils (%) (Auto) 0.9 0.0-2.0 % Neutrophils # (Auto) 4.8 1.6-8.6 10 ^3/uL Lymphocytes # (Auto) 2.1 0.4-5.4 10 ^3/uL Monocytes # (Auto) 0.4 0-1.3 10 ^3/uL Eosinophils # (Auto) 0.1 0-0.8 10 ^3/uL Basophils # (Auto) 0.1 0-0.2 10 ^3/uL Nucleated Red Blood Cells 0.1 % Sodium Level 140 136-145 mmol/L Potassium Level 4.1 3.5-5.1 mmol/L Chloride Level 109 H 98-107 mmol/L Carbon Dioxide Level 29 20-31 mmol/L Anion Gap 2 L 5-15 Blood Urea Nitrogen 17 9-23 mg/dL Creatinine 0.60 0.550-1.02 mg/dL Glomerular Filtration Rate Calc 99 >90 mL/min BUN/Creatinine Ratio 28.3 H 10.0-20.0 Serum Glucose 95 74-106 mg/dL Calcium Level 9.6 8.7-10.4 mg/dL Total Bilirubin 0.4 0.2-1.0 mg/dL Aspartate Amino Transferase (AST) 15 13-40 U/L Alanine Aminotransferase (ALT) < 9 7-40 U/L Alkaline Phosphatase 56 46-116 U/L Total Protein 6.6 5.7-8.2 g/dL Albumin 4.1 3.2-4.8 g/dL Primary Diagnosis Uterine prolapse Plan Check CBC, CMP to assess for infection, LC rhabdomyolysis, renal function, anemia Pelvic ultrasound to assess for uterine prolapse Surveillance Dual Rate Officer consult for uterine prolapse Patient agreeable with hysterectomy due to frequent urine prolonged Check UA to rule out infection. Positive start ceftriaxone 1 g daily, urine culture Full code Regular diet Heparin for DVT prophylaxis No GI prophylaxis needed Plan discussed with: Patient Problems List: (1) Uterine prolapse Status: Acute Date of Service: Jul 11, 2024 Billing Provider: SILVESTRE SALDANA MD Common Visit Codes: [id number] INP/OBS CARE (MOD) SILVESTRE SALDANA MD Jul 11, 2024 15:19
--- NOTE | 2024-07-11 15:23 | DVH ---
EXAM: US PELVIC HISTORY: uterine prolapse COMPARISON: None TECHNIQUE: Transabdominal and transvaginal imaging was utilized. Grayscale and color doppler evaluati on. Images were stored in the patient's permanent medical record. FINDINGS: UTERUS: 4.8 x 2.6 x 3.6 cm. Endometrial stripe: 0.6 cm. RIGHT OVARY: Not well visualized LEFT OVARY: Not well visualized OTHER: No free fluid is identified. IMPRESSION: 1. Uterus appears atrophic. 2. No visualized uterine prolapse.
[2024-07-11 16:01] LABS: Basophils # (auto) 0.1 10 ^3/uL (0-0.2); Eosinophils # (auto) 0.1 10 ^3/uL (0-0.8); Hemoglobin 13.4 g/dL (12.2-16.2); Lymphocytes # (auto) 2.1 10 ^3/uL (0.4-5.4); Monocytes # (auto) 0.4 10 ^3/uL (0-1.3); Nucleated Red Blood Cells % 0.1 %; Red Cell Distribution Width 14.2 % (11.8-14.3)
[2024-07-11 16:03] LABS: Basophils % (auto) 0.9 % (0.0-2.0); Eosinophils % (auto) 1.5 % (0.0-7.0); Lymphocytes % (auto) 28.3 % (10.0-50.0); Mean Corpuscular Hemoglobin 36.4 pg (28.0-32.0); Mean Corpuscular Hgb Conc. 33.6 g/dL (32.0-36.0); Mean Corpuscular Volume 108.3 fL (80.0-100.0); Neutrophils # (auto) 4.8 10 ^3/uL (1.6-8.6); Neutrophils % (auto) 64.3 % (37.0-80.0); Platelet Count (auto) 276 10^3/uL (140-450); Red Blood Cells 3.69 10^6/uL (4.0-5.20); White Blood Cell 7.5 10^3/uL (4.4-10.8)
[2024-07-11 16:05] LABS: Alkaline Phosphatase 56 U/L (46-116); Anion Gap 2 (5-15); Aspartate Aminotransferase 15 U/L (13-40); BUN/Creatinine Ratio 28.3 (10.0-20.0); Blood Urea Nitrogen 17 mg/dL (9-23); Calcium 9.6 mg/dL (8.7-10.4); Carbon Dioxide 29 mmol/L (20-31); Glucose 95 mg/dL (74-106); Potassium 4.1 mmol/L (3.5-5.1); Sodium 140 mmol/L (136-145); Total Protein 6.6 g/dL (5.7-8.2)
[2024-07-11 16:06] LABS: Albumin 4.1 g/dL (3.2-4.8); Bilirubin, Total 0.4 mg/dL (0.2-1.0)
[2024-07-11 16:08] LABS: Alanine Aminotransferase < 9 U/L (7-40); Chloride 109 mmol/L (98-107)
[2024-07-11] MEDS ORDERED: DOCUSATE SOD 100 MG CAP PO PRN (16:45)
[2024-07-11] MEDS ORDERED: ONDANSETRON HCL 4 MG/2 ML VIAL IV PRN (16:45)
[2024-07-11] MEDS ORDERED: ACETAMINOPHEN 325 MG TAB PO PRN (16:45)
--- NOTE | 2024-07-11 19:09 | DVHINCON2 ---
Date of service: Jul 11, 2024 Referring Physician ER attending Reason for Consultation Patient came to the ER secondary to fatigue and generalized weakness. She feels as if she has a UTI. Incidentally she describes chronic pelvic pain and prolapse; she is currently using a pessary and would like to have it fixed as the pessary is not giving her relief. She also has associated stress incontinence and a large bladder prolapse she would like me to fix. I degree and agreed to see her as outpatient recommended a cystoscopy urodynamics retroperitoneal ultrasound as outpatient. History of Present Illness History Source: Patient ( x2 her largest baby 10 lb plus which was her son her daughter was 8 lb.) Home Meds Active Scripts Ciprofloxacin Hcl (Ciprofloxacin Hcl) 500 Mg Tab, 1 TAB PO DAILY for 3 Days, #3 TAB Prov:ROSE SILVA RESIDENT 05/25/24 Past Medical History Cardiac: No pertinent Hx Pulmonary: No pertinent Hx Central Nervous System: No pertinent Hx GI: No pertinent Hx Hemotology/Oncology: No pertinent Hx Hepatobiliary: No pertinent Hx Psychiatric: No pertinent Hx Musculoskeletal: No pertinent Hx Rheumotologic: No pertinent Hx Infectious Disease: No peritnent Hx ENT: No pertinent Hx Renal/: No pertinent Hx Endocrine: No pertinent Hx Dermatology: No pertinent Hx Patient Family History: Patient reports no known family medical history. Review of Systems Constitutional: No symptom reported Ears, Nose, & Throat: No symptom reported Eyes: No symptom reported Pulmonary/Respiratory: No symptom reported Cardiovascular: No symptom reported Gastrointestinal: No symptom reported Genitourinary: No symptom reported Musculoskeletal: No symptom reported Skin: No symptom reported Psychiatric: No symptom reported Endocrine: No symptom reported Hemotologic/Lymphatic: No symptom reported H&P Exam Vital Signs Vital Signs Date Time Temp Pulse Resp B/P (MAP) Pulse Ox O2 Delivery O2 Flow Rate FiO2 07/11/24 11:56 99.3 104 18 126/72 (90) 93 99.3 Abdominal Exam: Normal bowel sounds, Soft, No tenderness, No hepatospenomegaly, No masses Rectal Exam: Deferred Pelvic Exam: Not done Neuro/Mental St: Alert, Oriented Appearance: Appropriate appearance, Appropriate insight Skin Exam: Normal inspection, Normal color, Warm/dry Labs/Xrays Labs Test 07/11/24 15:24 Range/Units White Blood Count 7.5 4.4-10.8 10^3/uL Red Blood Count 3.69 L 4.0-5.20 10^6/uL Hemoglobin 13.4 12.2-16.2 g/dL Hematocrit 40.0 36.0-46.0 % Mean Corpuscular Volume 108.3 H 80.0-100.0 fL Mean Corpuscular Hemoglobin 36.4 H 28.0-32.0 pg Mean Corpuscular Hemoglobin Concent 33.6 32.0-36.0 g/dL Red Cell Distribution Width 14.2 11.8-14.3 % Platelet Count 276 140-450 10^3/uL Mean Platelet Volume 6.9 6.9-10.8 fL Neutrophils (%) (Auto) 64.3 37.0-80.0 % Lymphocytes (%) (Auto) 28.3 10.0-50.0 % Monocytes (%) (Auto) 5.0 0.0-12.0 % Eosinophils (%) (Auto) 1.5 0.0-7.0 % Basophils (%) (Auto) 0.9 0.0-2.0 % Neutrophils # (Auto) 4.8 1.6-8.6 10 ^3/uL Lymphocytes # (Auto) 2.1 0.4-5.4 10 ^3/uL Monocytes # (Auto) 0.4 0-1.3 10 ^3/uL Eosinophils # (Auto) 0.1 0-0.8 10 ^3/uL Basophils # (Auto) 0.1 0-0.2 10 ^3/uL Nucleated Red Blood Cells 0.1 % Sodium Level 140 136-145 mmol/L Potassium Level 4.1 3.5-5.1 mmol/L Chloride Level 109 H 98-107 mmol/L Carbon Dioxide Level 29 20-31 mmol/L Anion Gap 2 L 5-15 Blood Urea Nitrogen 17 9-23 mg/dL Creatinine 0.60 0.550-1.02 mg/dL Glomerular Filtration Rate Calc 99 >90 mL/min BUN/Creatinine Ratio 28.3 H 10.0-20.0 Serum Glucose 95 74-106 mg/dL Calcium Level 9.6 8.7-10.4 mg/dL Total Bilirubin 0.4 0.2-1.0 mg/dL Aspartate Amino Transferase (AST) 15 13-40 U/L Alanine Aminotransferase (ALT) < 9 7-40 U/L Alkaline Phosphatase 56 46-116 U/L Total Protein 6.6 5.7-8.2 g/dL Albumin 4.1 3.2-4.8 g/dL Assessment/Plan Admitting Diagnosis: pain and pelvic prolapse; pessary in place NO acute abdominal findings requiring surgery at this time. 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; we will at that time schedule urodynamics cystoscopy and retroperitoneal ultrasound) Date of Service: Jul 11, 2024 Billing Provider: JASON MEDINA DO Common Visit Codes: CONSULT ONLY Consultation Codes: [id number] CONSULT <45MIN JASON MEDINA DO Jul 11, 2024 19:09
[2024-07-11] MEDS: SODIUM CHLOR 0.9% PF (SALINE LOCK) 10ML VIAL/SYR IV SCH (23:50)
[2024-07-11 23:52] VITALS: PULSE 70; RESP 16; O2SAT 96
[2024-07-12] VITALS (11 sets, daily range): BP systolic 99–113; BP diastolic 44–65; PULSE 64–85; RESP 16–19; TEMP 97.5–98.7; O2SAT 93–97
[2024-07-12] MEDS: HYDROcodone-ACET 5/325MG TAB PO PRN (01:29)
[2024-07-12 07:00] LABS: Albumin 3.5 g/dL (3.2-4.8); Alkaline Phosphatase 48 U/L (46-116); Anion Gap 0 (5-15); BUN/Creatinine Ratio 25.9 (10.0-20.0); Blood Urea Nitrogen 14 mg/dL (9-23); Calcium 9.3 mg/dL (8.7-10.4); Glucose 84 mg/dL (74-106); Potassium 4.2 mmol/L (3.5-5.1); Sodium 143 mmol/L (136-145)
[2024-07-12 07:01] LABS: Aspartate Aminotransferase 18 U/L (13-40); Bilirubin, Total 0.6 mg/dL (0.2-1.0)
[2024-07-12 07:05] LABS: Basophils # (auto) 0 10 ^3/uL (0-0.2); Eosinophils # (auto) 0.1 10 ^3/uL (0-0.8); Eosinophils % (auto) 2.7 % (0.0-7.0); Hemoglobin 12.5 g/dL (12.2-16.2); Lymphocytes # (auto) 1.8 10 ^3/uL (0.4-5.4); Monocytes # (auto) 0.4 10 ^3/uL (0-1.3); Platelet Count (auto) 252 10^3/uL (140-450)
[2024-07-12 07:10] LABS: Carbon Dioxide 32 mmol/L (20-31); Chloride 111 mmol/L (98-107)
[2024-07-12 07:11] LABS: Alanine Aminotransferase < 9 U/L (7-40); Basophils % (auto) 0.6 % (0.0-2.0); Hematocrit 36.6 % (36.0-46.0); Lymphocytes % (auto) 35.6 % (10.0-50.0); Mean Corpuscular Hgb Conc. 34.2 g/dL (32.0-36.0); Mean Corpuscular Volume 108.2 fL (80.0-100.0); Monocytes % (auto) 8.1 % (0.0-12.0); Neutrophils # (auto) 2.6 10 ^3/uL (1.6-8.6); Nucleated Red Blood Cells % 0.1 %; Red Blood Cells 3.39 10^6/uL (4.0-5.20); Red Cell Distribution Width 14.4 % (11.8-14.3); Total Protein 5.7 g/dL (5.7-8.2)
[2024-07-12 14:45] LABS: Urine Bacteria None Seen /hpf (None Seen)
[2024-07-12 14:56] LABS: Urine Amorphous Crystal FEW /hpf (None Seen); Urine Blood Negative /uL (Negative); Urine Clarity Turbid (Clear); Urine Color Yellow (Yellow); Urine Protein, UAD Negative (Negative); Urine Specific Gravity 1.016 (1.001-1.035); Urine Squamous Epithelial Cell FEW /hpf (<5); Urine Urobilinogen Normal (Negative); Urine WBC 1 /HPF (0-5)
--- NOTE | 2024-07-12 22:47 | DVHPN2 ---
Subjective The patient is seen and examined at bedside. Complaint of pain in the abdomen. Waiting for OBGYN to see her. Reviewed: Care Plan, H&P, Labs, Medications, Previous Orders, Radiology Changes from previous H/P or p: No Changes Objective Vitals Vital Signs Date Time Temp Pulse Resp B/P (MAP) Pulse Ox O2 Delivery O2 Flow Rate FiO2 07/12/24 16:40 98.3 83 17 110/65 (80) 96 98.3 07/12/24 08:15 Room Air* 0 21 Intake/Output Intake and Output 07/12/24 07:00 # Voids 1 General Appearance: Alert, Oriented X3, Cooperative, No acute distress HEENT: Atraumatic, PERRLA, EOMI, Mucous membr. moist/pink Neck: Supple Lungs: Clear to auscultation, Normal air movement Cardiovascular: Regular rate, Normal S1, Normal S2, No murmurs, Gallops, Rubs Abdomen: Normal bowel sounds, Soft, No tenderness Neuro: Cranial nerves 3-12 NL Psych/Mental Status: Mental status NL Medications Current Medications Medications Dose Ordered Sig/Krishna Route Start Time Stop Time Status Last Admin Dose Admin Sodium Chloride 10 ml Q8HR IV 07/11/24 22:00 07/12/24 21:26 10 ML Docusate Sodium 100 mg BIDPRN PRN PO 07/11/24 16:45 Acetaminophen 650 mg Q6HP PRN PO 07/11/24 16:45 Acetaminophen/ Hydrocodone Bitart 1 tab Q4HP PRN PO 07/11/24 16:45 07/12/24 20:01 1 TAB Ondansetron HCl 4 mg Q4HP PRN IV 07/11/24 16:45 Laboratory Results Laboratory Tests 07/12/24 06:29 Chemistry Test 07/12/24 06:29 Albumin 3.5 g/dL (3.2-4.8) Calcium Level 9.3 mg/dL (8.7-10.4) Total Protein 5.7 g/dL (5.7-8.2) LFT Test 07/12/24 06:29 Alanine Aminotransferase (ALT) < 9 U/L (7-40) Alkaline Phosphatase 48 U/L (46-116) Aspartate Amino Transferase (AST) 18 U/L (13-40) Total Bilirubin 0.6 mg/dL (0.2-1.0) Urinalysis Test 07/12/24 14:25 Urine Color Yellow (Yellow) Urine Clarity Turbid (Clear) H Urine pH 7.0 (5.0-9.0) Urine Specific [place] 1.016 (1.001-1.035) Urine Protein Negative (Negative) Urine Ketones Negative (Negative) Urine Blood Negative /uL (Negative) Urine Nitrite Negative (Negative) Urine Bilirubin Negative (Negative) Urine Urobilinogen Normal mg/dL (Negative) Urine Leukocyte Esterase Negative /uL (Negative) Urine RBC 1 /hpf (0 - 4) Urine Microscopic WBC 1 /HPF (0-5) Urine Squamous Epithelial Cells Few /hpf (<5) Urine Amorphous Crystals Few /hpf (None Seen) Urine Bacteria None seen /hpf (None Seen) Urine Glucose Normal mg/dL (Normal) Microbiology Microbiology Date/Time Source Procedure Growth Status 07/12/24 01:10 Nose MRSA Screen - Final Complete Labs and/or images reviewed: Labs reviewed by me Assessment/Plan Assessment/Plan Uterine prolapse Continuing current management. Continuing with pain medication. Waiting for OBGYN to see the patient. This medical document was created using an electronic medical record system with [employer] direct computerized dictation system. Although this document has been carefully reviewed, there may still be some phonetic and typographical errors. These areas are purely typographical due to imperfections of the software programs, and do not reflect any compromise in the patient's medical care. Plan discussed with: Patient My Orders Orders - DEBI WOLFE MD Procedure Category Date Status Time Apply: SADIE 07/12/24 In Process 11:40 Date of Service: Jul 12, 2024 Billing Provider: DEBI WOLFE MD Common Visit Codes: [id number] INP/OBS CARE(HIGH) DEBI WOLFE MD Jul 12, 2024 22:47
[2024-07-13 01:00] VITALS: BP 100/60; PULSE 74; RESP 18; TEMP 98.8; O2SAT 97
[2024-07-13 05:00] VITALS: BP 99/69; PULSE 70; RESP 18; TEMP 98.1; O2SAT 96
[2024-07-13 07:43] LABS: Basophils # (auto) 0 10 ^3/uL (0-0.2); Eosinophils # (auto) 0.1 10 ^3/uL (0-0.8); Eosinophils % (auto) 2.7 % (0.0-7.0); Lymphocytes # (auto) 1.6 10 ^3/uL (0.4-5.4); Monocytes # (auto) 0.3 10 ^3/uL (0-1.3); Red Blood Cells 3.63 10^6/uL (4.0-5.20)
[2024-07-13 07:45] LABS: Basophils % (auto) 0.6 % (0.0-2.0); Hematocrit 39.6 % (36.0-46.0); Hemoglobin 13.3 g/dL (12.2-16.2); Lymphocytes % (auto) 39.4 % (10.0-50.0); Mean Corpuscular Hemoglobin 36.7 pg (28.0-32.0); Mean Corpuscular Hgb Conc. 33.6 g/dL (32.0-36.0); Mean Corpuscular Volume 109.1 fL (80.0-100.0); Monocytes % (auto) 8.6 % (0.0-12.0); Neutrophils % (auto) 48.7 % (37.0-80.0); Nucleated Red Blood Cells % 0.2 %; Platelet Count (auto) 275 10^3/uL (140-450); Red Cell Distribution Width 14.4 % (11.8-14.3)
[2024-07-13 07:59] LABS: Albumin 3.8 g/dL (3.2-4.8); Alkaline Phosphatase 47 U/L (46-116); Anion Gap 1 (5-15); Aspartate Aminotransferase 20 U/L (13-40); BUN/Creatinine Ratio 19.2 (10.0-20.0); Bilirubin, Total 0.5 mg/dL (0.2-1.0); Blood Urea Nitrogen 10 mg/dL (9-23); Calcium 9.8 mg/dL (8.7-10.4); Carbon Dioxide 29 mmol/L (20-31); Chloride 112 mmol/L (98-107); Glucose 86 mg/dL (74-106); Potassium 4.2 mmol/L (3.5-5.1); Sodium 142 mmol/L (136-145); Total Protein 6.2 g/dL (5.7-8.2)
[2024-07-13 08:00] VITALS: PULSE 75; RESP 17; O2SAT 96
[2024-07-13 08:00] LABS: Alanine Aminotransferase < 9 U/L (7-40)
[2024-07-13 09:00] VITALS: BP 94/49; PULSE 78; RESP 18; TEMP 98; O2SAT 92
--- NOTE | 2024-07-13 11:59 | DVHPN2 ---
Objective Vitals Vital Signs Date Time Temp Pulse Resp B/P (MAP) Pulse Ox O2 Delivery O2 Flow Rate FiO2 07/13/24 09:00 98.0 78 18 94/49 (64) 92 98.0 07/13/24 08:00 Room Air* 0 21 Intake/Output Intake and Output 07/13/24 07:00 Intake Total 1700 ml Balance 1700 ml Intake Oral 1700 ml # Voids 4 Medications Current Medications Medications Dose Ordered Sig/Krishna Route Start Time Stop Time Status Last Admin Dose Admin Sodium Chloride 10 ml Q8HR IV 07/11/24 22:00 07/13/24 06:15 10 ML Docusate Sodium 100 mg BIDPRN PRN PO 07/11/24 16:45 Acetaminophen 650 mg Q6HP PRN PO 07/11/24 16:45 Acetaminophen/ Hydrocodone Bitart 1 tab Q4HP PRN PO 07/11/24 16:45 07/13/24 10:16 1 TAB Ondansetron HCl 4 mg Q4HP PRN IV 07/11/24 16:45 Laboratory Results Laboratory Tests 07/13/24 06:37 Chemistry Test 07/13/24 06:37 Albumin 3.8 g/dL (3.2-4.8) Calcium Level 9.8 mg/dL (8.7-10.4) Total Protein 6.2 g/dL (5.7-8.2) LFT Test 07/13/24 06:37 Alanine Aminotransferase (ALT) < 9 U/L (7-40) Alkaline Phosphatase 47 U/L (46-116) Aspartate Amino Transferase (AST) 20 U/L (13-40) Total Bilirubin 0.5 mg/dL (0.2-1.0) Urinalysis Test 07/12/24 14:25 Urine Color Yellow (Yellow) Urine Clarity Turbid (Clear) H Urine pH 7.0 (5.0-9.0) Urine Specific [place] 1.016 (1.001-1.035) Urine Protein Negative (Negative) Urine Ketones Negative (Negative) Urine Blood Negative /uL (Negative) Urine Nitrite Negative (Negative) Urine Bilirubin Negative (Negative) Urine Urobilinogen Normal mg/dL (Negative) Urine Leukocyte Esterase Negative /uL (Negative) Urine RBC 1 /hpf (0 - 4) Urine Microscopic WBC 1 /HPF (0-5) Urine Squamous Epithelial Cells Few /hpf (<5) Urine Amorphous Crystals Few /hpf (None Seen) Urine Bacteria None seen /hpf (None Seen) Urine Glucose Normal mg/dL (Normal) Microbiology Microbiology Date/Time Source Procedure Growth Status 07/12/24 01:10 Nose MRSA Screen - Final Complete Assessment/Plan My Orders Orders - DEBI WOLFE MD Procedure Category Date Status Time Apply: [facility] 07/12/24 In Process 11:40 DEBI WOLFE MD Jul 13, 2024 11:59
[2024-07-13 15:45] VITALS: BP 98/62; PULSE 67; RESP 18; TEMP 98.1; O2SAT 93
--- NOTE | 2024-07-19 06:30 | DVHDS2 ---
Discharge Summary Date of Admission Jul 11, 2024 at 16:31 Date of Discharge: Jul 13, 2024 Admitting Diagnosis Uterine prolapse Labs/Diagnostic Data: Laboratory Results Test 07/13/24 06:37 07/12/24 14:25 White Blood Count 4.0 10^3/uL (4.4-10.8) Red Blood Count 3.63 10^6/uL (4.0-5.20) Hemoglobin 13.3 g/dL (12.2-16.2) Hematocrit 39.6 % (36.0-46.0) Mean Corpuscular Volume 109.1 fL (80.0-100.0) Mean Corpuscular Hemoglobin 36.7 pg (28.0-32.0) Mean Corpuscular Hemoglobin Concent 33.6 g/dL (32.0-36.0) Red Cell Distribution Width 14.4 % (11.8-14.3) Platelet Count 275 10^3/uL (140-450) Mean Platelet Volume 6.9 fL (6.9-10.8) Neutrophils (%) (Auto) 48.7 % (37.0-80.0) Lymphocytes (%) (Auto) 39.4 % (10.0-50.0) Monocytes (%) (Auto) 8.6 % (0.0-12.0) Eosinophils (%) (Auto) 2.7 % (0.0-7.0) Basophils (%) (Auto) 0.6 % (0.0-2.0) Neutrophils # (Auto) 2.0 10 ^3/uL (1.6-8.6) Lymphocytes # (Auto) 1.6 10 ^3/uL (0.4-5.4) Monocytes # (Auto) 0.3 10 ^3/uL (0-1.3) Eosinophils # (Auto) 0.1 10 ^3/uL (0-0.8) Basophils # (Auto) 0 10 ^3/uL (0-0.2) Nucleated Red Blood Cells 0.2 % Sodium Level 142 mmol/L (136-145) Potassium Level 4.2 mmol/L (3.5-5.1) Chloride Level 112 mmol/L (98-107) Carbon Dioxide Level 29 mmol/L (20-31) Anion Gap 1 (5-15) Blood Urea Nitrogen 10 mg/dL (9-23) Creatinine 0.52 mg/dL (0.550-1.02) Glomerular Filtration Rate Calc 102 mL/min (>90) BUN/Creatinine Ratio 19.2 (10.0-20.0) Serum Glucose 86 mg/dL (74-106) Calcium Level 9.8 mg/dL (8.7-10.4) Total Bilirubin 0.5 mg/dL (0.2-1.0) Aspartate Amino Transferase (AST) 20 U/L (13-40) Alanine Aminotransferase (ALT) < 9 U/L (7-40) Alkaline Phosphatase 47 U/L (46-116) Total Protein 6.2 g/dL (5.7-8.2) Albumin 3.8 g/dL (3.2-4.8) Urine Color Yellow (Yellow) Urine Clarity Turbid (Clear) Urine pH 7.0 (5.0-9.0) Urine Specific [place] 1.016 (1.001-1.035) Urine Protein Negative (Negative) Urine Ketones Negative (Negative) Urine Blood Negative /uL (Negative) Urine Nitrite Negative (Negative) Urine Bilirubin Negative (Negative) Urine Urobilinogen Normal mg/dL (Negative) Urine Leukocyte Esterase Negative /uL (Negative) Urine RBC 1 /hpf (0 - 4) Urine Microscopic WBC 1 /HPF (0-5) Urine Squamous Epithelial Cells Few /hpf (<5) Urine Amorphous Crystals Few /hpf (None Seen) Urine Bacteria None seen /hpf (None Seen) Urine Glucose Normal mg/dL (Normal) Other Laboratory Tests 07/13/24 06:37 Brief Hx & Hospital Course: This is a 68 years old female come to emergency department because she feel her uterus falling out. The patient's saw a surgeon in the past and had a pessary placed for her uterine prolapse. The patient did not follow up with the treatment. This time she came to emergency department with four days of pelvic pain. OBGYNDr. Michelle see the patient and recommend outpatient cystoscopy urodynamic retroperitoneal ultrasound to evaluate a large bladder prolapse and also subsequently fixed the uterine and bladder prolapse. So I am discharge her home today. Advised her to follow up with Dr. Michelle per schedule. Follow up with her primary care physician 1-2 weeks. Activity as tolerated. Diet per home diet. Physical exam: HEENT: Normocephalic atraumatic pupils equal react to light and accommodation. Extraocular muscles intact, conjunctiva pink, oropharynx moist, no thrush, no exudate. Lymphatic: No lymphadenopathy Cardiovascular exam: S1, S2 was heard. No murmurs, rubs, gallops Lung: Clear on auscultation bilaterally, no wheeze, rale, rhonchi. GI: Abdominal soft, nondistended, nontenderness, positive bowel sounds. Extremity: No crepitus, cyanosis, edema. Pedal pulses present bilateral. Full range of motion. Skin: Normal turgor, no rash. Psych: Alert, oriented x3. Neurology: No focal deficits, cranial nerve II to XII grossly intact. This medical document was created using an electronic medical record system with [employer] direct computerized dictation system. Although this document has been carefully reviewed, there may still be some phonetic and typographical errors. These areas are purely typographical due to imperfections of the software programs, and do not reflect any compromise in the patient's medical care. Condition at Discharge: Stable Final Diagnosis/Problems List uterinevaginal prolapse Bladder prolapse Discharge Disposition: Home Discharge Instruct/Medications Diet: Regular Activity: Light activity Follow Up/Referral: [facility] [employer] [facility] as outpatient pcp 1-2 weeks Medications: none Discharge Statement: "Patient was advised to return to the ER or call 911 if any headaches, dizziness, shortness of breath, chest pain, abdominal pain, bleeding, fevers, or worsening of medical condition. Patient was counseled about treatment plan, medications, possible side effects, patientverbalized understanding. All questions were answered to the best of my ability. This discharge took greater then 30 minutes in planning, reviewing documentation, counseling the patient, and discussing with other team members." ASSESSMENT ASSESSMENT Assessment uterinevaginal prolapse Date of Service: Jul 13, 2024 Billing Provider: DEBI WOLFE MD Common Visit Codes: [id number] DISCH DAY >30min DEBI WOLFE MD July 19, 2024 06:30
== END 2024-07-13 16:25 | disposition home or self-care (01) | DRG 761 ==
LOC: ER 11:43 → OVERFLOW 16:31 → WEST WING 07-12 03:02
PROVIDERS: ADMIT Internal Medicine; ATTEND Internal Medicine
DX: N81.4 Uterovaginal prolapse, unspecified (principal); G89.29 Other chronic pain; N39.3 Stress incontinence (female) (male); Z88.2 Allergy status to sulfonamides; Z79.2 Long term (current) use of antibiotics; Z79.899 Other long term (current) drug therapy; Z90.710 Acquired absence of both cervix and uterus
CPT/HCPCS: 36415; 76830; 76856; 80053; 81001; 85025; 87081; G0378

== ENCOUNTER 2024-08-18 09:34 | Inpatient (IN) | payer OTHER ==
[~2024-08-18] VITALS: Ht 172.7 cm; Wt 55.4 kg
[2024-08-18] VITALS (7 sets, daily range): BP systolic 101–109; BP diastolic 62–68; PULSE 78–92; RESP 12–18; TEMP 97.9–98.5; O2SAT 93–95
--- NOTE | 2024-08-18 10:32 | ECG ---
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
--- NOTE | 2024-08-18 10:39 | ED.PDOC ---
History of Present Illness HPI Comments 69-year-old female came to the ER stating that she has been having dizziness for the past month. Today she went to work when the dizziness got worse could not even stand up. States that she never had any workup for her dizziness since her symptoms for started. Denies taking any medications. She does smoke cigarettes. Denies any other symptoms. 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: No Pertinent SOLE EDGE INKER MACHINE History Family History Family History: Reviewed,noncontributory to illness, No family hx of Cancer, No family hx of DM, No family hx of Heart beverly, No family hx of HTN, No family hx ofKidney beverly, No family hx of Liver beverly, No family hx of Lung beverly, No family hx of Stroke Social History Smoker: Non-Smoker Alcohol: Denies ETOH Use Drugs: Denies Drug Use Lives In: Home Constitutional: denies: chills, diaphoresis, fatigue, fever, malaise, sweats, weakness, others EENTM: denies: blurred vision, double vision, ear bleeding, ear discharge, ear drainage, ear pain, ear ringing, eye pain, eye redness, hearing loss, mouth pain, mouth swelling, nasal discharge, nose bleeding, nose congestion, nose pain, photophobia, tearing, throat pain, throat swelling, voice changes, others Respiratory: denies: cough, hemoptysis, orthopnea, SOB at rest, shortness of breath, SOB with excertion, stridor, wheezing, others Cardiovascular: reports: dizzy spells; denies: chest pain, diaphoresis, Dyspnea on exertion, edema, irregular heart beat, left arm pain, lightheadedness, palpitations, PND, syncope, others Gastrointestinal: denies: abdomen distended, abdominal pain, blood streaked bowels, constipated, diarrhea, dysphagia, difficulty swallowing, hematemesis, melena, nausea, poor appetite, poor fluid intake, rectal bleeding, rectal pain, vomiting, others Genitourinary: denies: abnormal vagina bleeding, burning, dyspareunia, dysuria, flank pain, frequency, hematuria, incontinence, pain, , vagina discharge, urgency, others Neurological: reports: dizziness; denies: fainting, headache, left sided numbness, left sided weakness, numbness, paresthesia, pre-existing deficit, right sided numbness, right sided weakness, seizure, speech problems, tingling, tremors, weakness, others Musculoskeletal: denies: back pain, gout, joint pain, joint swelling, muscle pain, muscle stiffness, neck pain, others Integumetry: denies: bruises, change in color, change in hair/nails, dryness, laceration, lesions, lumps, rash, wounds, others Allergic/Immunocompromised: denies: Difficulty Healing, Frequent Infections, Hives, Itching, others Hematologic/Lymphatic: denies: anemia, blood clots, easy bleeding, easy bruising, swollen glands, others Endocrine: denies: excessive hunger, excessive sweating, excessive thirst, excessive urination, flushing, intolerance to cold, intolerance to heat, unexplained weight gain, unexplained weight loss, others Psychiatric: denies: anxiety, bipolar disorder, depression, hopeless, panic disorder, schizophrenia, sleepless, suicidal, others Physical Exam General Appearance: Moderate Distress HEENT: Normal ENT Inspection, Pharynx Normal, TMs Normal Neck: Full Range of Motion, Non-Tender, Normal, Normal Inspection Respiratory: Chest Non-Tender, Lungs Clear, No Accessory Muscle Use, No Res piratory Distress, Normal Breath Sounds Cardiovascular: No Edema, No JVD, No Murmur, No Gallop, Normal Peripheral Pulses, Regular Rate/Rhythm Breast Exam: Deferred Gastrointestinal: No Organomegaly, Non Tender, No Pulsatile Mass, Normal Bowel Sounds, Soft Genitalia: Deferred Pelvic: Deferred Rectal: Deferred Extremities: No calf tenderness, Normal capillary refill, Normal inspection, Normal range of motion, Non-tender, No pedal edema Musculoskeletal : Apperance: Normal 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 Was a procedure done?: No EKG EKG : Cardiac Rhythm: NSR Differential Dx Considerations may include: Autonomic disorder Electrolyte imbalance X-Ray, Labs, Meds, VS Vital Signs Date Time Temp Pulse Resp B/P (MAP) Pulse Ox O2 Delivery O2 Flow Rate FiO2 08/18/24 10:23 83 Lab Test 08/18/24 10:14 Range/Units POC Glucose Pending Patient alert. Complaining of dizziness. Vitals stable. Unable to ambulate without falling. Possible TIA. Possibly will need MRI. Reviewed her history. Carotid duplex. Continues to smoke cigarettes. Counseled patient on effects of smoking cigarettes for 15 minutes. Explained to the patient. Continue monitoring. Time of 1ST Reevaluation: 10:37 Reevaluation 1ST: Unchanged Patient Education/Counseling: Diagnosis, Treatment, Prognosis Family Education/Counseling: No Family Present Departure 1 Departure Time of Disposition: 10:38 Impression: Primary Impression: Autonomic disorder Disposition: ADMITTED INPATIENT Admit to: Med Surg Condition: Guarded e-Prescriptions No Active Prescriptions or Reported Meds Critical Care Note Critical Care Time?: No Stability Stability form required: No Heart Score Heart Score: Heart Score Response (Comments) Value History Slightly Suspicious 0 EKG Normal 0 Age >65 2 Risk Factors 1 or 2 risk factors 1 Troponin Normal limit 0 Total 3 EUGENIE CARRILLO MD Aug 18, 2024 10:39
[2024-08-18 11:01] LABS: Basophils # (auto) 0 10 ^3/uL (0-0.2); Hemoglobin 13.9 g/dL (12.2-16.2); Monocytes # (auto) 0.3 10 ^3/uL (0-1.3); Neutrophils # (auto) 4.4 10 ^3/uL (1.6-8.6); Nucleated Red Blood Cells % 0.1 %; Red Blood Cells 3.73 10^6/uL (4.0-5.20); Red Cell Distribution Width 15.5 % (11.8-14.3); White Blood Cell 5.9 10^3/uL (4.4-10.8)
[2024-08-18 11:03] LABS: Basophils % (auto) 0.6 % (0.0-2.0); Eosinophils # (auto) 0 10 ^3/uL (0-0.8); Eosinophils % (auto) 0.8 % (0.0-7.0); Hematocrit 40.9 % (36.0-46.0); Lymphocytes # (auto) 1.1 10 ^3/uL (0.4-5.4); Lymphocytes % (auto) 19.1 % (10.0-50.0); Mean Corpuscular Hemoglobin 37.3 pg (28.0-32.0); Mean Corpuscular Volume 109.5 fL (80.0-100.0); Monocytes % (auto) 5.1 % (0.0-12.0); Neutrophils % (auto) 74.4 % (37.0-80.0); Platelet Count (auto) 251 10^3/uL (140-450)
[2024-08-18 11:07] LABS: Urine Bacteria None Seen /hpf (None Seen)
[2024-08-18 11:14] LABS: Anion Gap 1 (5-15); Carbon Dioxide 31 mmol/L (20-31); Potassium 3.9 mmol/L (3.5-5.1); Sodium 140 mmol/L (136-145)
[2024-08-18 11:15] LABS: Calcium 9.8 mg/dL (8.7-10.4)
[2024-08-18 11:19] LABS: BUN/Creatinine Ratio 16.9 (10.0-20.0); Blood Urea Nitrogen 10 mg/dL (9-23)
[2024-08-18 11:19] LABS: Urine Blood Negative /uL (Negative); Urine Clarity Turbid (Clear); Urine Color Yellow (Yellow); Urine Mucus FEW (None Seen); Urine Protein, UAD 2+ (Negative); Urine Specific Gravity 1.025 (1.001-1.035); Urine Squamous Epithelial Cell FEW /hpf (<5); Urine Urobilinogen 4 mg/dL (Negative); Urine WBC 2 /HPF (0-5)
[2024-08-18 11:20] LABS: Chloride 108 mmol/L (98-107); Glucose 106 mg/dL (74-106)
--- NOTE | 2024-08-18 12:21 | DVH ---
EXAM: XY CHEST XRAY 1 VIEW Indication: Pain; r/o pna Technique: Single frontal view of the chest was obtained Comparison: None FINDINGS: Lines and Tubes: None Lungs: No focal consolidation. Pleura: No effusion. No pneumothorax. Cardiomediastinal contours: Unremarkable Bones: No acute osseous abnormality. IMPRESSION: No acute cardiopulmonary disease.
--- NOTE | 2024-08-18 12:28 | DVH ---
EXAM: CT HEAD WITHOUT CONTRAST HISTORY: dizzy COMPARISON: None TECHNIQUE: Axial images of the head were obtained and reformatted in coronal and sagittal planes. All CT scans at this medical facility are performed using dose modulation techniques as appropriate t o a performed exam including the following: Automated exposure control was utilized; adjustment of th e MA and/or KV according to patient size; and use of iterative reconstruction technique. CT Dose: CTDI volume is 49.96 mGy. Dose-length product is 801.01 mGy*cm FINDINGS: There is no evidence of acute intracranial hemorrhage, mass, mass effect midline shift. There is no h ydrocephalus or extra-axial fluid collection. There are mild patchy chronic microvascular ischemic c hanges in the supratentorial white matter. Calvin-white matter differentiation is maintained. The visualized paranasal sinuses and mastoid air cells are clear. The calvarium is intact. IMPRESSION: 1. No acute intracranial process. HS:Y
--- NOTE | 2024-08-18 12:40 | DVH ---
Indication: abd pain Technique: CT axial images of the abdomen and pelvis are obtained without contrast. Coronal and sagit hamilton reformats were obtained. Radiation Dose Information: CTDI volume is 5.07 mGy. Dose-length product is 239.45 mGy*cm Comparison: None FINDINGS: There is limited interpretation of the abdomen and pelvis without administration of intravenous contr ast. Lung bases demonstrate no pleural effusion. Adrenal glands unremarkable in shape. Splenic calcification consistent with remote granulomatous dis ease. Pancreas demonstrates parenchymal atrophy / fatty infiltration. Liver unremarkable in shape. N o CT evidence for cholelithiasis. There is no hydronephrosis or nephrolithiasis. The stomach is partially distended. The small bowel loops are normal in caliber. Colonic diverticular disease. Moderate volume stool in the colon. Normal appendix. Abdominal aortic atherosclerotic disease. There is aneurysmal dilatation of the infrarenal abdominal aorta to 2.8 cm. 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 Bladder partially distended. Pelvic pessary device. No inguinal lymphadenopathy. 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 Severe degenerate changes left hi p. Moderate degenerate changes right hip. Moderate bilateral sacroiliac degenerative joint disease. Posterior fixation of the L5, S1 vertebral bodies. Chronic L2 compression deformity with 80% loss hei ght. Moderate to advanced lumbar facet hypertrophic changes. IMPRESSION: 1. Colonic diverticular disease. Moderate volume stool within the colon. 2. Atherosclerotic disease. Aneurysmal disease of the infrarenal abdominal aorta to 2.8 cm. 3. Pelvic pessary device. 4. Other findings as described.
[2024-08-18] MEDS ORDERED: ONDANSETRON HCL 4 MG/2 ML VIAL IV PRN (14:30)
[2024-08-18] MEDS ORDERED: NITROGLYCERIN 0.4 MG SL TAB SL PRN (14:30)
--- NOTE | 2024-08-18 14:31 | DVHHP2 ---
History of Present Illness Reason for Visit: Dizziness History of Present Illness Pamella Nicholas is a 69-year-old female with past medical history of hyperlipidemia, UTIs, and tonsillectomy who presents to the ED with dizziness x3 months. Patient also endorses that she had lost 30 lbs unintentionally. Patient also reports that she feels like" the insides of her stomach are stuck together". Patient also states that she has a pessary ring and has not follow up for surgery for a sling or hysterectomy or BSO or a colpo suspension. 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 She denies any chest pain, shortness of breath, fever, chills, lightheadedness, weakness, abdominal pain, nausea, vomiting, diarrhea, recent trauma or injury, recent sick contacts, or recent ingestion of spoiled food. Patient reports that she smokes half a pack of cigarettes per day and drinks occasionally but does not use any drugs. Cardiovascular: hyperipidemia Renal/: UTI Past Surgical History: Tonsillectomy Family History: DM, Other (Grandmother with diabetes) Smoke: <1 pack per day ALCOHOL: occassional Drugs: None Lives: with Family Domestic Violence: Neg Review of Systems Constitutional: Yes: Other (Dizziness and unintentional weight loss) Allergies: Uncoded Allergies: SULFA (Allergy, Unknown, 12/11/23) Exam Vital Signs Vital Signs Date Time Temp Pulse Resp B/P (MAP) Pulse Ox O2 Delivery O2 Flow Rate FiO2 08/18/24 13:12 99.0 94 17 112/69 (83) 99 99.0 General Appearance: Alert, Oriented X3, Cooperative, No acute distress HEENT: Atraumatic, PERRLA, EOMI Respiratory: Normal air movement Cardiovascular: Regular rate, Normal S1, Normal S2 Abdominal: Normal bowel sounds, Soft Extremities: Normal pulses Skin: No significant lesion Neuro: Normal gait, Normal speech, Strength at 5/5 X4 ext, Normal tone, Sensation intact Psych/Mental Status: Mental status NL, Mood NL Labs/Xrays Labs Test 08/18/24 10:46 08/18/24 10:28 08/18/24 10:14 Range/Units White Blood Count 5.9 4.4-10.8 10^3/uL Red Blood Count 3.73 L 4.0-5.20 10^6/uL Hemoglobin 13.9 12.2-16.2 g/dL Hematocrit 40.9 36.0-46.0 % Mean Corpuscular Volume 109.5 H 80.0-100.0 fL Mean Corpuscular Hemoglobin 37.3 H 28.0-32.0 pg Mean Corpuscular Hemoglobin Concent 34.0 32.0-36.0 g/dL Red Cell Distribution Width 15.5 H 11.8-14.3 % Platelet Count 251 140-450 10^3/uL Mean Platelet Volume 7.2 6.9-10.8 fL Neutrophils (%) (Auto) 74.4 37.0-80.0 % Lymphocytes (%) (Auto) 19.1 10.0-50.0 % Monocytes (%) (Auto) 5.1 0.0-12.0 % Eosinophils (%) (Auto) 0.8 0.0-7.0 % Basophils (%) (Auto) 0.6 0.0-2.0 % Neutrophils # (Auto) 4.4 1.6-8.6 10 ^3/uL Lymphocytes # (Auto) 1.1 0.4-5.4 10 ^3/uL Monocytes # (Auto) 0.3 0-1.3 10 ^3/uL Eosinophils # (Auto) 0 0-0.8 10 ^3/uL Basophils # (Auto) 0 0-0.2 10 ^3/uL Nucleated Red Blood Cells 0.1 % Sodium Level 140 136-145 mmol/L Potassium Level 3.9 3.5-5.1 mmol/L Chloride Level 108 H 98-107 mmol/L Carbon Dioxide Level 31 20-31 mmol/L Anion Gap 1 L 5-15 Blood Urea Nitrogen 10 9-23 mg/dL Creatinine 0.59 0.550-1.02 mg/dL Glomerular Filtration Rate Calc 99 >90 mL/min BUN/Creatinine Ratio 16.9 10.0-20.0 Serum Glucose 106 74-106 mg/dL Calcium Level 9.8 8.7-10.4 mg/dL Troponin I High Sensitivity 4 </=34 ng/L Beta HCG, Quantitative 2.7 1.5-4.2 mIU/mL Urine Color Yellow Yellow Urine Clarity Turbid H Clear Urine pH 6.0 5.0-9.0 Urine Specific [place] 1.025 1.001-1.035 Urine Protein 2+ H Negative Urine Ketones Trace Negative Urine Blood Negative Negative /uL Urine Nitrite Negative Negative Urine Bilirubin Negative Negative Urine Urobilinogen 4 H Negative mg/dL Urine Leukocyte Esterase Negative Negative /uL Urine RBC 4 0 - 4 /hpf Urine Microscopic WBC 2 0-5 /HPF Urine Squamous Epithelial Cells Few <5 /hpf Urine Bacteria None seen None Seen /hpf Urine Mucus Few None Seen Urine Glucose Normal Normal mg/dL POC Glucose 98 70-106 mg/dl CAROTID DOPPLER ULTRASOUND HISTORY: dizziness COMPARISON: None TECHNIQUE: Real time calvin scale, color Doppler, and spectral duplex images are obtained through the carotid and vertebral arteries. Findings: Peak systolic velocity right internal carotid artery is 100 cm/s and right common carotid artery is 91 cm/s. Ratio is 1.1. Antegrade flow noted in right vertebral artery. Mild atherosclerotic plaque noted within the right carotid arterial system. Peak systolic velocity left internal carotid artery is 114 cm/s and left common carotid artery is 92 cm/s. Ratio is 1.2. Antegrade flow noted in left vertebral artery. Mild atherosclerotic plaque noted within the left carotid arterial system. Impression: 1. No evidence of hemodynamically significant stenosis within the bilateral carotid arterial systems. 2. Antegrade flow within bilateral vertebral arteries. EXAM: XY CHEST XRAY 1 VIEW Indication: Pain; r/o pna Technique: Single frontal view of the chest was obtained Comparison: None FINDINGS: Lines and Tubes: None Lungs: No focal consolidation. Pleura: No effusion. No pneumothorax. Cardiomediastinal contours: Unremarkable Bones: No acute osseous abnormality. IMPRESSION: No acute cardiopulmonary disease. Indication: abd pain Technique: CT axial images of the abdomen and pelvis are obtained without contrast. Coronal and sagittal reformats were obtained. Radiation Dose Information: CTDI volume is 5.07 mGy. Dose-length product is 239.45 mGy*cm Comparison: None FINDINGS: There is limited interpretation of the abdomen and pelvis without administration of intravenous contrast. Lung bases demonstrate no pleural effusion. Adrenal glands unremarkable in shape. Splenic calcification consistent with remote granulomatous disease. Pancreas demonstrates parenchymal atrophy / fatty infiltration. Liver unremarkable in shape. No CT evidence for cholelithiasis. There is no hydronephrosis or nephrolithiasis. The stomach is partially distended. The small bowel loops are normal in caliber. Colonic diverticular disease. Moderate volume stool in the colon. Normal appendix. Abdominal aortic atherosclerotic disease. There is aneurysmal dilatation of the infrarenal abdominal aorta to 2.8 cm. 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 Bladder partially distended. Pelvic pessary device. No inguinal lymphadenopathy. 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 Severe degenerate changes left hip. Moderate degenerate changes right hip. Moderate bilateral sacroiliac degenerative joint disease. Posterior fixation of the L5, S1 vertebral bodies. Chronic L2 compression deformity with 80% loss height. Moderate to advanced lumbar facet hypertrophic changes. IMPRESSION: 1. Colonic diverticular disease. Moderate volume stool within the colon. 2. Atherosclerotic disease. Aneurysmal disease of the infrarenal abdominal aorta to 2.8 cm. 3. Pelvic pessary device. 4. Other findings as described. EXAM: CT HEAD WITHOUT CONTRAST HISTORY: dizzy COMPARISON: None TECHNIQUE: Axial images of the head were obtained and reformatted in coronal and sagittal planes. All CT scans at this medical facility are performed using dose modulation techniques as appropriate to a performed exam including the following: Automated exposure control was utilized; adjustment of the MA and/or KV according to patient size; and use of iterative reconstruction technique. CT Dose: CTDI volume is 49.96 mGy. Dose-length product is 801.01 mGy*cm FINDINGS: There is no evidence of acute intracranial hemorrhage, mass, mass effect midline shift. There is no hydrocephalus or extra-axial fluid collection. There are mild patchy chronic microvascular ischemic changes in the supratentorial white matter. Calvin-white matter differentiation is maintained. The visualized paranasal sinuses and mastoid air cells are clear. The calvarium is intact. IMPRESSION: 1. No acute intracranial process. Assessment/Plan Assessment/Plan Assessment Autonomic imbalance Abdominal disturbance Tobacco use Alcohol use History of hyperlipidemia History of UTIs History of tonsillectomy Plan Admit to [facility] Troponin noted EKG UA Echo CT head Chest x-ray CT abdomen and pelvis noted HCG Ultrasound carotid Dietary consult Diet Per patient does not take any home medications DVT prophylaxis-not indicated patient ambulating PUD prophylaxis-not indicated no history of GERD or GI bleed Discussed plan of care with patient and nurse Counseled patient on cessation of tobacco use and alcohol use Plan discussed with: Patient My Orders Orders - MO GUERRERO [employer] Procedure Category Date Status Time Head Without Contrast CT 08/18/24 Resulted 11:36 Chest Xray 1 View XY 08/18/24 Resulted 11:37 Ct Ab Pel Wo Con-No CT 08/18/24 Resulted Oral Or Iv 11:37 Echo 2d Mode Cardiac US 08/18/24 Logged DOP 11:38 Date of Service: Aug 18, 2024 Billing Provider: MO GUERRERO Common Visit Codes: [id number] INP/OBS CARE (HIGH) MO GUERRERO Aug 18, 2024 14:31
[2024-08-18] MEDS ORDERED: MORPHINE SULFATE 4 MG/ML SYR/VIAL IV PRN (14:45)
--- NOTE | 2024-08-18 16:01 | DVH ---
CAROTID DOPPLER ULTRASOUND HISTORY: dizziness COMPARISON: None TECHNIQUE: Real time kapadia scale, color Doppler, and spectral duplex images are obtained through the c arotid and vertebral arteries. Findings: Peak systolic velocity right internal carotid artery is 100 cm/s and right common carotid a rtery is 91 cm/s. Ratio is 1.1. Antegrade flow noted in right vertebral artery. Mild atherosclerotic plaque noted within the right carotid arterial system. Peak systolic velocity left internal carotid artery is 114 cm/s and left common carotid artery is 92 cm/s. Ratio is 1.2. Antegrade flow noted in left vertebral artery. Mild atherosclerotic plaque noted within the left carotid arterial system. Impression: 1. No evidence of hemodynamically significant stenosis within the bilateral carotid arterial systems. 2. Antegrade flow within bilateral vertebral arteries.
[2024-08-19] VITALS (7 sets, daily range): BP systolic 95–126; BP diastolic 50–88; PULSE 65–89; RESP 15–17; TEMP 97.7–98.9; O2SAT 92–97
[2024-08-19 06:20] LABS: Basophils # (auto) 0 10 ^3/uL (0-0.2); Eosinophils # (auto) 0.1 10 ^3/uL (0-0.8); Hemoglobin 13.7 g/dL (12.2-16.2); Lymphocytes # (auto) 1.2 10 ^3/uL (0.4-5.4); Mean Corpuscular Hemoglobin 37.4 pg (28.0-32.0); Nucleated Red Blood Cells % 0.1 %; Red Blood Cells 3.67 10^6/uL (4.0-5.20); White Blood Cell 5.4 10^3/uL (4.4-10.8)
[2024-08-19 06:24] LABS: Basophils % (auto) 0.5 % (0.0-2.0); Eosinophils % (auto) 1.1 % (0.0-7.0); Hematocrit 40.1 % (36.0-46.0); Lymphocytes % (auto) 22.2 % (10.0-50.0); Mean Corpuscular Hgb Conc. 34.3 g/dL (32.0-36.0); Mean Corpuscular Volume 109.2 fL (80.0-100.0); Monocytes # (auto) 0.4 10 ^3/uL (0-1.3); Monocytes % (auto) 7.8 % (0.0-12.0); Neutrophils # (auto) 3.7 10 ^3/uL (1.6-8.6); Neutrophils % (auto) 68.4 % (37.0-80.0); Platelet Count (auto) 252 10^3/uL (140-450); Red Cell Distribution Width 15.5 % (11.8-14.3)
[2024-08-19 06:51] LABS: Albumin 3.7 g/dL (3.2-4.8); Anion Gap 2 (5-15); BUN/Creatinine Ratio 15.3 (10.0-20.0); Blood Urea Nitrogen 9 mg/dL (9-23); Calcium 9.1 mg/dL (8.7-10.4); Glucose 90 mg/dL (74-106); Potassium 3.7 mmol/L (3.5-5.1); Sodium 144 mmol/L (136-145); Total Protein 5.8 g/dL (5.7-8.2)
[2024-08-19 06:52] LABS: Bilirubin, Total 0.4 mg/dL (0.2-1.0)
[2024-08-19 07:06] LABS: Alanine Aminotransferase < 9 U/L (7-40); Alkaline Phosphatase 45 U/L (46-116); Aspartate Aminotransferase 11 U/L (13-40); Carbon Dioxide 32 mmol/L (20-31); Chloride 110 mmol/L (98-107)
--- NOTE | 2024-08-19 13:16 | DVHPN2 ---
Reviewed: Care Plan, H&P, Labs, Medications, Previous Orders, Radiology Changes from previous H/P or p: No Changes Objective Vitals Vital Signs Date Time Temp Pulse Resp B/P (MAP) Pulse Ox O2 Delivery O2 Flow Rate FiO2 08/19/24 12:57 97.7 68 17 95/88 (90) 94 97.7 08/19/24 08:05 Room Air* 0 21 Intake/Output Intake and Output 08/19/24 07:00 Intake Total 320 ml Balance 320 ml Intake Oral 320 ml Medications Current Medications Medications Dose Ordered Sig/Krishna Route Start Time Stop Time Status Last Admin Dose Admin Ondansetron HCl 4 mg Q4HP PRN IV 08/18/24 14:30 Acetaminophen 650 mg Q6HP PRN PO 08/18/24 14:30 Nitroglycerin 0.4 mg Q5MINP PRN SL 08/18/24 14:30 Morphine Sulfate 2 mg Q30M PRN IV 08/18/24 14:45 Laboratory Results Laboratory Tests 08/19/24 05:38 Chemistry Test 08/19/24 05:38 Albumin 3.7 g/dL (3.2-4.8) Calcium Level 9.1 mg/dL (8.7-10.4) Total Protein 5.8 g/dL (5.7-8.2) LFT Test 08/19/24 05:38 Alanine Aminotransferase (ALT) < 9 U/L (7-40) Alkaline Phosphatase 45 U/L (46-116) L Aspartate Amino Transferase (AST) 11 U/L (13-40) L Total Bilirubin 0.4 mg/dL (0.2-1.0) Urinalysis Test 08/18/24 10:28 Urine Color Yellow (Yellow) Urine Clarity Turbid (Clear) H Urine pH 6.0 (5.0-9.0) Urine Specific [place] 1.025 (1.001-1.035) Urine Protein 2+ (Negative) H Urine Ketones Trace (Negative) Urine Blood Negative /uL (Negative) Urine Nitrite Negative (Negative) Urine Bilirubin Negative (Negative) Urine Urobilinogen 4 mg/dL (Negative) H Urine Leukocyte Esterase Negative /uL (Negative) Urine RBC 4 /hpf (0 - 4) Urine Microscopic WBC 2 /HPF (0-5) Urine Squamous Epithelial Cells Few /hpf (<5) Urine Bacteria None seen /hpf (None Seen) Urine Mucus Few (None Seen) Urine Glucose Normal mg/dL (Normal) Labs and/or images reviewed: Labs reviewed by me, Image(s) reviewed by me Assessment/Plan Assessment/Plan Dizziness: CT head negative, carotid ultrasound negative, chest x-ray negative CT abdomen pelvis without contrast negative Tobacco use Alcohol use Hyperlipidemia History of UTIs Echocardiogram pending Plan discussed with: Patient Date of Service: Aug 19, 2024 Billing Provider: CJ SALAZAR MD Common Visit Codes: [id number] INP/OBS CARE(HIGH) CJ SALAZAR MD Aug 19, 2024 13:16
--- NOTE | 2024-08-19 21:10 | DVHSR ---
APPROVED REPORT EXAM: Two-dimensional and M-mode echocardiogram with Doppler and color Doppler. Blood Pressure: 104/59 mmHg INDICATION Dizziness and Vertigo RISK FACTORS Height: 5'8", Weight: 120 DIMENSIONS LVDd4.4 (3.8-5.7cm)LA (2D)3.8 (1.9-4.0cm)Aortic Root3.1 (2.0-3.7cm) LVDs3.0 (2.5-4.0cm)LA (MM) (1.9-4.0cm)Aortic Cusp Exc1.7 (1.5-2.0cm) EF (%) 60.0 (55-70%)Rt. Atrium3.3 (1.9-4.0cm)Asc. Aorta cm IVSd0.6 (0.7-1.1cm)RV (D) (1.8-2.4cm) Mitral Valve MitralMitral Stenosis E/A ratio0.02D MVAcm2 Aortic Valve Aortic ValveAortic Stenosis LVOT Diameter2.0 (1.8-2.4cm)Doppler AVAcm2 Pulmonic Valve V20.66m/s Tricuspid Valve TR Velocity2.42m/s [id number] Other Information Quality : Technically LimitedRhythm : Technically limited study due to body habitus. Conclusion MILD LVH AND MILD LV DIASTOLIC DYSFUNCTION LV EF IS 65% NORMAL VALVES NO EFFUSION NORMAL RV FUNCTION
[2024-08-20 01:00] VITALS: BP 106/62; PULSE 70; RESP 15; TEMP 98; O2SAT 90
[2024-08-20 05:00] VITALS: BP 107/60; PULSE 65; RESP 14; TEMP 97.4; O2SAT 96
[2024-08-20 08:00] VITALS: PULSE 65; RESP 18; O2SAT 96
[2024-08-20 08:57] VITALS: BP 111/57; PULSE 76; RESP 16; TEMP 98.5; O2SAT 96
[2024-08-20] MEDS: ACETAMINOPHEN 325 MG TAB PO PRN (10:07)
--- NOTE | 2024-08-20 11:59 | DVHPN2 ---
Reviewed: Care Plan, H&P, Labs, Medications, Previous Orders, Radiology Changes from previous H/P or p: No Changes Objective Vitals Vital Signs Date Time Temp Pulse Resp B/P (MAP) Pulse Ox O2 Delivery O2 Flow Rate FiO2 08/20/24 08:57 98.5 76 16 111/57 (75) 96 98.5 08/20/24 08:00 Room Air* 0 21 Intake/Output Intake and Output 08/20/24 07:00 Intake Total 1250 ml Balance 1250 ml Intake Oral 1250 ml # Voids 13 Medications Current Medications Medications Dose Ordered Sig/Krishna Route Start Time Stop Time Status Last Admin Dose Admin Ondansetron HCl 4 mg Q4HP PRN IV 08/18/24 14:30 Acetaminophen 650 mg Q6HP PRN PO 08/18/24 14:30 08/20/24 10:07 650 MG Nitroglycerin 0.4 mg Q5MINP PRN SL 08/18/24 14:30 Morphine Sulfate 2 mg Q30M PRN IV 08/18/24 14:45 Laboratory Results Laboratory Tests 08/19/24 05:38 Urinalysis Test 08/18/24 10:28 Urine Color Yellow (Yellow) Urine Clarity Turbid (Clear) H Urine pH 6.0 (5.0-9.0) Urine Specific [place] 1.025 (1.001-1.035) Urine Protein 2+ (Negative) H Urine Ketones Trace (Negative) Urine Blood Negative /uL (Negative) Urine Nitrite Negative (Negative) Urine Bilirubin Negative (Negative) Urine Urobilinogen 4 mg/dL (Negative) H Urine Leukocyte Esterase Negative /uL (Negative) Urine RBC 4 /hpf (0 - 4) Urine Microscopic WBC 2 /HPF (0-5) Urine Squamous Epithelial Cells Few /hpf (<5) Urine Bacteria None seen /hpf (None Seen) Urine Mucus Few (None Seen) Urine Glucose Normal mg/dL (Normal) Labs and/or images reviewed: Labs reviewed by me, Image(s) reviewed by me Assessment/Plan Assessment/Plan Dizziness: CT head negative, carotid ultrasound negative, chest x-ray negative CT abdomen pelvis without contrast negative, ejection fraction 65 % Tobacco use Alcohol use Hyperlipidemia History of UTIs Echocardiogram 60 percent ejection fraction Plan discussed with: Patient My Orders Orders - CJ SALAZAR MD Procedure Category Date Status Time Cleanse Wound With SADIE 08/19/24 In Process Wound Clean 10:52 Date of Service: Aug 20, 2024 Billing Provider: CJ SALAZAR MD Common Visit Codes: [id number] INP/OBS CARE(HIGH) CJ SALAZAR MD Aug 20, 2024 11:59
[2024-08-20] MEDS ORDERED: CIPR-173 PO (12:00)
--- NOTE | 2024-08-20 12:03 | DVHDS2 ---
Discharge Summary Date of Admission Aug 18, 2024 at 14:21 Date of Discharge: Aug 20, 2024 Admitting Diagnosis Dizziness Wounds: None Labs/Diagnostic Data: Laboratory Results Test 08/19/24 05:38 08/18/24 10:46 08/18/24 10:28 08/18/24 10:14 White Blood Count 5.4 10^3/uL (4.4-10.8) Red Blood Count 3.67 10^6/uL (4.0-5.20) Hemoglobin 13.7 g/dL (12.2-16.2) Hematocrit 40.1 % (36.0-46.0) Mean Corpuscular Volume 109.2 fL (80.0-100.0) Mean Corpuscular Hemoglobin 37.4 pg (28.0-32.0) Mean Corpuscular Hemoglobin Concent 34.3 g/dL (32.0-36.0) Red Cell Distribution Width 15.5 % (11.8-14.3) Platelet Count 252 10^3/uL (140-450) Mean Platelet Volume 7.4 fL (6.9-10.8) Neutrophils (%) (Auto) 68.4 % (37.0-80.0) Lymphocytes (%) (Auto) 22.2 % (10.0-50.0) Monocytes (%) (Auto) 7.8 % (0.0-12.0) Eosinophils (%) (Auto) 1.1 % (0.0-7.0) Basophils (%) (Auto) 0.5 % (0.0-2.0) Neutrophils # (Auto) 3.7 10 ^3/uL (1.6-8.6) Lymphocytes # (Auto) 1.2 10 ^3/uL (0.4-5.4) Monocytes # (Auto) 0.4 10 ^3/uL (0-1.3) Eosinophils # (Auto) 0.1 10 ^3/uL (0-0.8) Basophils # (Auto) 0 10 ^3/uL (0-0.2) Nucleated Red Blood Cells 0.1 % Sodium Level 144 mmol/L (136-145) Potassium Level 3.7 mmol/L (3.5-5.1) Chloride Level 110 mmol/L (98-107) Carbon Dioxide Level 32 mmol/L (20-31) Anion Gap 2 (5-15) Blood Urea Nitrogen 9 mg/dL (9-23) Creatinine 0.59 mg/dL (0.550-1.02) Glomerular Filtration Rate Calc 99 mL/min (>90) BUN/Creatinine Ratio 15.3 (10.0-20.0) Serum Glucose 90 mg/dL (74-106) Calcium Level 9.1 mg/dL (8.7-10.4) Total Bilirubin 0.4 mg/dL (0.2-1.0) Aspartate Amino Transferase (AST) 11 U/L (13-40) Alanine Aminotransferase (ALT) < 9 U/L (7-40) Alkaline Phosphatase 45 U/L (46-116) Total Protein 5.8 g/dL (5.7-8.2) Albumin 3.7 g/dL (3.2-4.8) Troponin I High Sensitivity 4 ng/L (</=34) Beta HCG, Quantitative 2.7 mIU/mL (1.5-4.2) Urine Color Yellow (Yellow) Urine Clarity Turbid (Clear) Urine pH 6.0 (5.0-9.0) Urine Specific [place] 1.025 (1.001-1.035) Urine Protein 2+ (Negative) Urine Ketones Trace (Negative) Urine Blood Negative /uL (Negative) Urine Nitrite Negative (Negative) Urine Bilirubin Negative (Negative) Urine Urobilinogen 4 mg/dL (Negative) Urine Leukocyte Esterase Negative /uL (Negative) Urine RBC 4 /hpf (0 - 4) Urine Microscopic WBC 2 /HPF (0-5) Urine Squamous Epithelial Cells Few /hpf (<5) Urine Bacteria None seen /hpf (None Seen) Urine Mucus Few (None Seen) Urine Glucose Normal mg/dL (Normal) POC Glucose 98 mg/dl (70-106) Other Laboratory Tests 08/19/24 05:38 Brief Hx & Hospital Course: 69-year-old female with a history of alcohol use tobacco use hyperlipidemia history of UTIs came in complaining of dizziness CT head negative carotid ultrasound negative chest x-ray negative CT abdomen pelvis without contrast negative echocardiogram 65 percent ejection fraction urine analysis negative patient feels better being discharged home. Per patient's request Cipro has been transmitted to pharmacy for history of recurrent UTI Consults/Reason for consult None Operations or Procedures CT head Carotid ultrasound Echocardiogram Condition at Discharge: Fair Final Diagnosis/Problems List Dizziness: CT head negative, carotid ultrasound negative, chest x-ray negative CT abdomen pelvis without contrast negative, ejection fraction 65 % Tobacco use Alcohol use Hyperlipidemia History of UTIs Echocardiogram 60 percent ejection fraction Discharge Disposition: Home Discharge Instruct/Medications Diet: Cardiac 2g Na,low cholest Activity: Light activity Follow Up/Referral: Follow up with the primary Dr Medications: Cipro 35 (Time taken for discharge summary 35 minutes) Discharge Statement: "Patient was advised to return to the ER or call 911 if any headaches, dizziness, shortness of breath, chest pain, abdominal pain, bleeding, fevers, or worsening of medical condition. Patient was counseled about treatment plan, medications, possible side effects, patientverbalized understanding. All questions were answered to the best of my ability. This discharge took greater then 30 minutes in planning, reviewing documentation, counseling the patient, and discussing with other team members." ASSESSMENT ASSESSMENT Hospital Course Uneventful Assessment Dizziness: CT head negative, carotid ultrasound negative, chest x-ray negative CT abdomen pelvis without contrast negative, ejection fraction 65 % Tobacco use Alcohol use Hyperlipidemia History of UTIs Echocardiogram 60 percent ejection fraction Date of Service: Aug 20, 2024 Billing Provider: CJ SALAZAR MD Common Visit Codes: [id number] DISCH DAY >30min CJ SALAZAR MD Aug 20, 2024 12:03
[2024-08-20 12:54] VITALS: BP 112/65; PULSE 78; RESP 17; TEMP 98.4; O2SAT 96
== END 2024-08-20 13:00 | disposition home or self-care (01) | DRG 74 ==
LOC: ER 09:34 → OVERFLOW 14:21 → WEST WING 17:15
PROVIDERS: ADMIT Family Medicine; ATTEND Family Medicine
DX: G90.89 Other disorders of autonomic nervous system (principal); F10.90 Alcohol use, unspecified, uncomplicated; F17.210 Nicotine dependence, cigarettes, uncomplicated; E78.5 Hyperlipidemia, unspecified; Z87.440 Personal history of urinary (tract) infections; Z88.2 Allergy status to sulfonamides; Z83.3 Family history of diabetes mellitus; Y90.9 Presence of alcohol in blood, level not specified
CPT/HCPCS: 36415; 70450; 71045; 74176; 80048; 80053; 81001; 82962; 84484; 84702; 85025; 93005; 93306; 93886; G0378